=== PATIENT | female | born 1965 | race Caucasian/White ===

== ENCOUNTER 2019-08-20 07:25 | Outpatient (CLI) | payer OTHER, SELFPAY ==
--- NOTE | 2019-08-20 07:15 | USCV_ITS ---
Fabby Yang Age: 54 Gender: F : 1965 Exam Date: 08/20/2019 07:38 Ordering Phys: Paul Iyer MD ([email or web address]) Technologist: Sona Gutierrez Exam Location: [facility] – [place] Indication: F/U BP: 113 / 52 HR: 63 Rhythm: Sinus Technical Quality: Suboptimal MEASUREMENTS (Male / Female) Normal Values 2D ECHO LV Diastolic Diameter PLAX 4.5 cm 4.2 - 5.9 / 3.9 - 5.3 cm LV Systolic Diameter PLAX 2.9 cm LV Chamber Size 3.7 cm IVS Diastolic Thickness 1.0 cm 0.6 - 1.0 / 0.6 - 0.9 cm IVS Systolic Thickness 1.3 cm LVPW Diastolic Thickness 1.5 cm 0.6 - 1.0 / 0.6 - 0.9 cm LVPW Systolic Thickness 1.9 cm RV Chamber Size 3.0 cm LVOT Diameter 2.0 cm LV Ejection Fraction 2D Teich 63.4 % LV Ejection Fraction MOD 2C 63.9 % LV Ejection Fraction 2C AL 64.0 % LA Diameter 3.9 cm LA Width 3.1 cm LA Height 4.6 cm RA Width 3.3 cm RA Height 3.6 cm Aorta at Sinotubular Diameter 2.4 cm M-MODE LV Diastolic Diameter MM 5.1 cm 4.2 - 5.9 / 3.9 - 5.3 cm LV Systolic Diameter MM 3.7 cm LV Ejection Fraction MM Teich 54.0 % IVS Diastolic Thickness MM 0.7 cm 0.6 - 1.0 / 0.6 - 0.9 cm IVS Systolic Thickness MM 1.3 cm LVPW Diastolic Thickness MM 1.0 cm 0.6 - 1.0 / 0.6 - 0.9 cm LVPW Systolic Thickness MM 1.2 cm Aortic Annulus Diameter 2.2 cm LA Ao Ratio MM 1.8 MV E Point Septal Separation 0.4 cm DOPPLER AV Peak Velocity 160.0 cm/s LVOT Peak Velocity 95.0 cm/s AV Area Cont Eq vti 2.5 cm squared AV Area Cont Eq pk 1.9 cm squared MV Area PHT 3.1 cm squared Mitral E to A Ratio 1.1 MV E' Velocity 8.0 cm/s Mitral E to MV E' Ratio 10.9 Mitral E to LV E' Lateral Ratio 10.7 Mitral E to LV E' Septal Ratio 11.4 TR Peak Velocity 213.0 cm/s TR Peak Gradient 18.1 mmHg TV Peak E Velocity 63.0 cm/s Right Atrial Pressure 3.0 mmHg Pulmonary Artery Systolic Pressu 21.1 mmHg PV Peak Velocity 75.0 cm/s RV Acceleration Time 0.2 s RV Ejection Time 0.4 s RV AcT/ET 0.4 FINDINGS Left Ventricle Left ventricular cavity not well visualized. Normal left ventricular size, systolic function and wall thickness, with no regional wall motion abnormalities. Grade I/IV diastolic dysfunction (abnormal relaxation filling pattern), normal to mildly elevated filling pressures. Left ventricular ejection fraction is estimated at 55-60 %. Right Ventricle Normal right ventricular size and systolic function. Normal right ventricular systolic pressure. Right Atrium The right atrium is normal in size. Left Atrium The left atrium is normal in size. Mitral Valve Structurally normal mitral valve. Trace mitral valve regurgitation. Aortic Valve Structurally normal aortic valve without significant sclerosis or stenosis. There is no aortic regurgitation. Tricuspid Valve Structurally normal tricuspid valve. Trace to mild tricuspid valve regurgitation. Pulmonic Valve Pulmonic valve not well visualized. Pericardium Normal pericardium without effusion. Aorta Normal ascending aorta dimension. CONCLUSIONS Left ventricular cavity not well visualized. Normal left ventricular size, systolic function and wall thickness, with no regional wall motion abnormalities. Grade I/IV diastolic dysfunction (abnormal relaxation filling pattern), normal to mildly elevated filling pressures. Left ventricular ejection fraction is estimated at 55-60 %. Structurally normal mitral valve. Trace mitral valve regurgitation. No change from previous study. Dr. Paul Iyer MD (Electronically Signed) Final Date: 20 August 2019 08:11 S
== END 2019-08-20 07:26 | disposition home or self-care (01) ==
PROVIDERS: Family Provider General Practice; PCP Internal Medicine; Visit Provider Internal Medicine Cardiovascular Disease
DX: I25.5 Ischemic cardiomyopathy (principal)
CPT/HCPCS: 93306

== ENCOUNTER 2020-08-12 12:37 | Outpatient (CLI) | payer OTHER, SELFPAY ==
--- NOTE | 2020-08-12 13:20 | USCV_ITS ---
Fabby Yang Age: 55 Gender: F : 1965 Exam Date: 08/12/2020 13:44 Ordering Phys: Claudia Glass MD ([email or web address]) Technologist: Darwin Kyle Exam Location: [facility] – [place] Indication: ISCHEMIC CARDIOMYOPATHY BP: 127 / 83 HR: 64 Rhythm: Sinus Technical Quality: Fair MEASUREMENTS (Male / Female) Normal Values 2D ECHO LV Diastolic Diameter PLAX 4.4 cm 4.2 - 5.9 / 3.9 - 5.3 cm LV Systolic Diameter PLAX 3.1 cm IVS Diastolic Thickness 1.2 cm 0.6 - 1.0 / 0.6 - 0.9 cm IVS Systolic Thickness 1.6 cm LVPW Diastolic Thickness 1.2 cm 0.6 - 1.0 / 0.6 - 0.9 cm LVPW Systolic Thickness 1.5 cm LVOT Diameter 2.0 cm LV Ejection Fraction 2D Teich 57.3 % LV Ejection Fraction MOD 2C 40.0 % LV Ejection Fraction 2C AL 40.2 % LA Diameter 3.2 cm LA Width 3.8 cm LA Height 5.0 cm RA Width 4.1 cm RA Height 4.2 cm Aorta at Sinotubular Diameter 2.5 cm M-MODE LV Diastolic Diameter MM 5.1 cm 4.2 - 5.9 / 3.9 - 5.3 cm LV Systolic Diameter MM 3.7 cm LV Ejection Fraction MM Teich 53.9 % IVS Diastolic Thickness MM 0.8 cm 0.6 - 1.0 / 0.6 - 0.9 cm IVS Systolic Thickness MM 1.4 cm LVPW Diastolic Thickness MM 1.4 cm 0.6 - 1.0 / 0.6 - 0.9 cm LVPW Systolic Thickness MM 1.7 cm Aortic Annulus Diameter 2.7 cm LA Ao Ratio MM 1.1 MV E Point Septal Separation 0.5 cm DOPPLER AV Peak Velocity 149.3 cm/s LVOT Peak Velocity 101.0 cm/s AV Area Cont Eq vti 2.4 cm squared AV Area Cont Eq pk 2.1 cm squared MV Area PHT 4.6 cm squared Mitral E to A Ratio 0.9 MV E' Velocity 42.5 cm/s Mitral E to MV E' Ratio 6.5 Mitral E to LV E' Lateral Ratio 5.7 Mitral E to LV E' Septal Ratio 7.5 TR Peak Velocity 168.6 cm/s TR Peak Gradient 11.4 mmHg TR Mean Velocity 132.5 cm/s TR Mean Gradient 7.8 mmHg TR Velocity Time Integral 44.7 cm Right Atrial Pressure 3.0 mmHg Pulmonary Artery Systolic Pressu 14.4 mmHg PV Peak Velocity 84.0 cm/s FINDINGS Left Ventricle Normal left ventricular size, systolic function and upper normal wall thickness, with no regional wall motion abnormalities. Left ventricular ejection fraction is estimated at 57 %. Normal diastolic function. Right Ventricle Normal right ventricular size and systolic function. Right ventricular systolic pressure 23 mmHg. Right Atrium Normal right atrial size. Left Atrium Normal left atrial size. Mitral Valve Structurally normal mitral valve. No mitral valve stenosis. Trace mitral valve regurgitation. Aortic Valve Structurally normal trileaflet aortic valve. No aortic valve stenosis. No aortic valve regurgitation. Tricuspid Valve Structurally normal tricuspid valve. Trace to mild tricuspid valve regurgitation. Pulmonic Valve Pulmonic valve not well visualized. No pulmonary valve stenosis. No pulmonary valve regurgitation. Pericardium No pericardial effusion. Aorta Normal size aortic root and proximal ascending aorta. CONCLUSIONS 1. Normal left ventricular size, systolic function and wall thickness, with no regional wall motion abnormalities. Left ventricular ejection fraction is estimated at 57 %. Normal diastolic function. 2. Normal right ventricular size and systolic function. 3. Normal pulmonary artery pressure. 4. No significant valvular abnormality. 5. No significant change when compared to echocardiogram dated 08/20/2019/ Claudia Glass MD (Electronically Signed) Final Date: 16 August 2020 17:54 S
== END 2020-08-12 12:38 | disposition home or self-care (01) ==
PROVIDERS: PCP Internal Medicine; Visit Provider Internal Medicine Cardiovascular Disease
DX: I25.5 Ischemic cardiomyopathy (principal)
CPT/HCPCS: 93306

== ENCOUNTER 2020-11-14 16:13 | Emergency (ER) | payer OTHER, SELFPAY ==
[2020-11-14 16:24] VITALS: BP 111/64; PULSE 82; RESP 16; TEMP 36.8; O2SAT 94; BMI 25.9
--- NOTE | 2020-11-14 18:42 | CTR_ITS ---
PROCEDURE INFORMATION: Exam: CT Abdomen And Pelvis With Contrast Exam date and time: 11/14/2020 6:42 PM Age: 55 years old Clinical indication: Abdominal pain; Localized; Lower; Patient HX: C/O vaginal protrusion and pain; Additional info: Uterine prolapse , left flank pain TECHNIQUE: Imaging protocol: Computed tomography of the abdomen and pelvis with contrast. Radiation optimization: All CT scans at this facility use at least one of these dose optimization techniques: automated exposure control; mA and/or kV adjustment per patient size (includes targeted exams where dose is matched to clinical indication); or iterative reconstruction. Contrast material: OMNI 300; Contrast volume: 95 ml; Contrast route: INTRAVENOUS (IV); COMPARISON: No relevant prior studies available. RADIATION DOSE METRICS: Total DLP (mGy-cm): 1765.55 FINDINGS: Liver: Low-attenuation lesion in the posterior right liver; hemangioma suspected. Gallbladder and bile ducts: Normal. No calcified stones. No ductal dilation. Pancreas: Normal. No ductal dilation. Spleen: Normal. No splenomegaly. Adrenal glands: Normal. No mass. Kidneys and ureters: Incidental finding of small simple left renal cortical cyst. Negative for hydronephrosis. Stomach and bowel: Extensive diverticulosis coli. Inflammatory bowel wall thickening involving a short segment of the mid descending colon on the left. Inflammatory fat stranding changes. Enlarged, edematous diverticulum on axial series 2, image 49 correlated with coronal series 602, image 33. Appendix: No evidence of appendicitis. Intraperitoneal space: No free intraperitoneal air. No intraperitoneal fluid collection. Vasculature: Unremarkable. No abdominal aortic aneurysm. Lymph nodes: Unremarkable. No enlarged lymph nodes. Urinary bladder: Unremarkable as visualized. Reproductive: Unremarkable as visualized. Bones/joints: Unremarkable. No acute fracture. Soft tissues: Fat containing left inguinal hernia. CT/CT abdomen pelvis w con* [id number] IMPRESSION: Acute diverticulitis in the mid left descending colon. COMMENTS: Consistent with the [employer]'s Incidental Findings Committee white paper (J Am Dino Radiol 2018): Any incidental renal lesion less than 1 cm or classified as too small to characterize, or any incidental cystic renal lesion characterized as simple-appearing, is likely benign. No follow-up imaging is recommended for these lesions per consensus recommendations based on imaging criteria. Radiation Dose CTDIVOL = (mGy): DLP = 1765.55 (mGy-cm)
--- NOTE | 2020-11-14 18:48 | ED_ITS ---
HPI - Female Genitourinary General: Chief complaint: Urogenital-Female Stated complaint: insides are coming out Time Seen by Provider: 11/14/20 18:27 History of Present Illness: HPI Narrative: Patient states that for about a week she a protrusion from her vaginal opening. States she is evaluated with urinalysis at [facility] and was told she did not have a UTI. Is awaiting for a referral for [facility] has not received that. Patient said she still has a protrusion and is causing some pain in her vaginal area and her left flank area. Having some slight difficulty urinating. Quality of pain: dull and aching Consistency: constant and progressively worsening Vaginal discharge: none Vaginal bleeding: none Urinary symptoms: Difficulty Urinating Exacerbating factors: movement Associated symptoms: Reports no associated symptoms; Deny abdominal pain, headache(s) or nausea Treatment prior to arrival: none Patient : No Review of Systems Const: Denies: fever(s), chills or body aches Eyes: Denies: change in vision or blurry vision ENMT: Denies: throat pain or nasal congestion Card: Denies: chest pain or dyspnea on exertion Resp: Denies: dyspnea, productive cough or non-productive cough GI: Denies: abdominal pain, nausea or vomiting : Reports: flank pain (Left side) and prolapse symptoms Musc: Denies: extremity pain Skin/Breast: Denies: rash Neuro: Denies: headache(s) Psych: Denies: anxiety or depression Edwin/Lymph: Denies: easy bruising PFSH ED PFSH: Medical History HTN (hypertension) Tobacco abuse Family History Mother CAD (coronary artery disease) Father CAD (coronary artery disease) Diabetes Social History Smoking and tobacco status: current every day smoker cigarettes Packs smoked per day: 1 Years cigarettes smoked: 30 Household members: spouse Marital status: Physical Exam Const: COMMON NORMALS: no acute distress, average body habitus and patient oriented x3 HENMT: COMMON NORMALS: normocephalic HEAD & SCALP: normal to inspection and normocephalic FACE & SINUS: normal facial exam Eye: COMMON NORMALS: conjunctivae normal GENERAL EYE: appearance normal, both eyes and all related structures CONJUNCTIVA: Yes conjunctivae normal Neck/C-Spine: COMMON NORMALS: no JVD Chest: COMMONS NORMALS: normal inspection of the chest Resp: COMMON NORMALS: normal respiratory effort and clear to auscultation bilaterally AUSCULTATION: clear to auscultation bilaterally Cardio: COMMON NORMALS: no JVD, regular rate and regular rhythm RATE: regular rate RHYTHM: regular rhythm GI: COMMON NORMALS: Soft to palpation INSPECTION: Yes normal to inspection AUSCULTATION: Yes normoactive bowel sounds PALPATION: Yes Soft to palpation and Yes Tenderness to palpation present (GI) Details: LLQ : COMMON NORMALS: Yes normal appearance of the vagina EXTERNAL FEMALE EXAM: Yes other (I did not see her uterus protruding it does appear to have possible uterine) Extremity: COMMON NORMALS: normal to inspection and full ROM Neuro: COMMON NORMALS: patient oriented x3 Course Vital Signs: Vital signs: Vital Signs Temperature 98.2 F 11/14/20 22:33 Pulse Rate 62 11/14/20 22:33 Respiratory Rate 16 11/14/20 22:33 Blood Pressure 97/41 11/14/20 22:33 Pulse Oximetry 98 11/14/20 22:33 MDM - Female MDM Narrative: Medical decision making narrative: Discussed presentation with Dr. Rowe about patient's presenting signs symptoms labs and radiology report. Lab Data: Labs: Lab Results 11/14/20 11/14/20 11/14/20 Range/Units 19:10 19:10 19:10 WBC 14.8 H (4.0-10.0) 10^3/ uL RBC 4.79 (4.1-5.3) 10^6/u L Hgb 16.0 H (11.5-15.3) g/dL Hct 47.0 (37.0-47.0) % MCV 98.1 (81-99) fL MCH 33.4 (28.0-34.0) pg MCHC 34.0 (30.0-36.0) g/dL RDW 12.2 (12.1-15.1) % Plt Count 301 (130-400) 10^3/c mm MPV 10.6 H (7.4-10.4) fL Neut % (Auto) 52.6 % Lymph % (Auto) 34.8 % Fallon % (Auto) 7.2 % Eos % (Auto) 4.3 % Baso % (Auto) 0.7 % Neut # (Auto) 7.76 H (1.8-7.7) 10^3/u L Lymph # (Auto) 5.1 H (0.8-4.8) 10^3/u L Fallon # (Auto) 1.1 H (0.2-0.9) 10^3/u L Eos # (Auto) 0.6 (0.0-0.8) 10^3/u L Baso # (Auto) 0.1 (0.0-0.1) 10^3/u L Nucleated RBC % (a uto) 0 % Nucleated RBCs # 0.0 /100WBC Sodium 141 (136-145) mmol/L Potassium 4.2 (3.5-5.1) mmol/L Chloride 102 (98-107) mmol/L Carbon Dioxide 26 (22-29) mmol/L Anion Gap 17.2 (5-19) BUN 11 (6-20) mg/dL Creatinine 0.8 (0.5-0.9) mg/dL GFR Calculation 75.0 L (90-130) mL/min Glucose 125 H (65-115) mg/dL Calculated Osmolal ity 293 (285-295) mOsm/k g Calcium 9.1 (8.5-10.5) mg/dL Urine Color Yellow (Yellow) Urine Appearance Clear (CLEAR) Urine pH 5 (5-7) Ur Specific Gravit y 1.015 (1.005-1.030) Urine Protein Neg (Negative) Urine Glucose (UA) Norm (Normal) Urine Ketones Negative (Negative) Urine Blood Trace H (Negative) Urine Nitrate Negative (Negative) Urine Bilirubin Neg (Negative) Urine Urobilinogen Norm (Negative) mg/dL Ur Leukocyte Radha ase Negative (Negative) Urine RBC 0-4 H (0-2) /hpf Urine WBC None (0-5) /hpf Ur Squamous Epith Cells 0-4 H (0-5) /hpf Amorphous Sediment Not Reportable Urine Bacteria Trace (NONE) /hpf Discharge Plan Discharge Patient Disposition: Home Clinical Impression: Acute diverticulitis Condition: Stable Prescriptions: New Cipro 500 mg tablet 500 mg PO BID Qty: 14 RF: 0 Flagyl 500 mg tablet 500 mg PO BID 7 Days Qty: 14 RF: 0 tramadol 50 mg tablet 50 mg PO TID PRN (Reason: pain) Qty: 7 RF: 0 No Action aspirin [Aspir-81] 81 mg tablet,delayed release (DR/EC) 81 mg PO DAILY RF: 0 duloxetine [Cymbalta] 20 mg capsule,delayed release(DR/EC) 20 mg PO DAILY RF: 0 carvedilol 3.125 mg tablet 3.125 mg PO BID Qty: 180 RF: 3 furosemide 40 mg tablet 40 mg PO DAILY Qty: 90 RF: 3 lisinopril 10 mg tablet 10 mg PO DAILY Qty: 90 RF: 3 potassium chloride 20 mEq tablet,ER particles/crystals 20 meq PO DAILY Qty: 90 RF: 3 Discharge Orders: Discharge ED (Routine); Ordered 11/14/20 Ordered By: Carter Hung Referrals: Fidel Benedict DO [Primary Care Provider] - Discharge Diet: As Directed Discharge Activity: Resume usual activity Patient Instructions: Diverticulitis (ED), Diverticulitis Diet (ED) Activity Restrictions/Additional Instructions: Follow-up with medical provider as directed. Take medications as prescribed. Return to the ER or your medical provider if condition worsens. Please read and understand discharge instructions. If any questions ask please. Coding Level of Care Code ED Animal Care Supervisor for Cristal Fwd Exam Comprehensive
[2020-11-14 19:26] LABS: Basophils # 0.1 10^3/uL (0.0-0.1); Basophils % 0.7 %; Eosinophils # 0.6 10^3/uL (0.0-0.8); Eosinophils % 4.3 %; Lymphocytes # 5.1 10^3/uL (0.8-4.8); Lymphocytes % 34.8 %; Mean Corpuscular Hemoglobin 33.4 pg (28.0-34.0); Mean Corpuscular Volume 98.1 fL (81-99); Mean Platelet Volume 10.6 fL (7.4-10.4); Monocytes # 1.1 10^3/uL (0.2-0.9); Monocytes % 7.2 %; Neutrophils # 7.76 10^3/uL (1.8-7.7); Neutrophils % 52.6 %; Nucleated Red Blood Cells % 0 %; Platelet Count 301 10^3/cmm (130-400); Positive M 1; Red Blood Count 4.79 10^6/uL (4.1-5.3); Red Cell Distribution Width 12.2 % (12.1-15.1); White Blood Count 14.8 10^3/uL (4.0-10.0)
[2020-11-14] MEDS: iohexol 300 mg/mL 100 mL Btl IV (19:35)
[2020-11-14 19:47] LABS: Slide Review Slide Review Perform
[2020-11-14 19:58] LABS: Bilirubin Urine Neg (Negative); Glucose Urine UA Norm (Normal); Ketones Urine Negative (Negative); Leukocyte Esterase Urine Negative (Negative); Nitrate Urine Negative (Negative); Protein Urine Neg (Negative); Specific Gravity, Urine 1.015 (1.005-1.030); Urine Appearance Clear (CLEAR); Urine Color Yellow (Yellow); Urobilinogen Urine Norm (Negative); pH Urine 5 (5-7)
[2020-11-14 19:59] LABS: Add Urine Culture? No; Add Urine Microscopic? YES; Bacteria Urine TRACE /hpf; Blood Urine Trace (Negative); RBC Urine 0-4 /hpf (0-2); Squamous Epithelial Cell Urine 0-4 /hpf (0-5)
[2020-11-14 20:00] LABS: Blood Urea Nitrogen 11 mg/dL (6-20); Calcium 9.1 mg/dL (8.5-10.5); Carbon Dioxide 26 mmol/L (22-29); Chloride 102 mmol/L (98-107); Glucose 125 mg/dL (65-115); Osmolality Calculated 293 mOsm/kg (285-295); Sodium 141 mmol/L (136-145)
[2020-11-14] MEDS: HYDROcodone-acetaminophen 5-325 mg Tablet 1 TAB PO (20:05)
[2020-11-14 20:07] VITALS: BP 106/55; PULSE 76; RESP 16; O2SAT 97
[2020-11-14 20:10] LABS: Anion Gap 17.2 (5-19); Potassium 4.2 mmol/L (3.5-5.1)
[2020-11-14] MEDS: ciprofloxacin 200 MG/100 ML PREMIX 100 MG IV (21:27)
[2020-11-14] MEDS: metroNIDAZOLE IV 250 MG in empty flexible container 1 EACH 50 MG IV (21:27)
[2020-11-14 22:00] VITALS: BP 102/60; PULSE 76; RESP 16; TEMP 36.8; O2SAT 97
[2020-11-14 22:33] VITALS: BP 97/41; PULSE 62; RESP 16; TEMP 36.8; O2SAT 98
== END 2020-11-14 22:41 | disposition home or self-care (01) ==
PROVIDERS: Emergency Provider Nurse Practitioner Family; PCP Internal Medicine
DX: K57.92 Diverticulitis of intestine, part unspecified, without perforation or abscess without bleeding (principal); Z79.82 Long term (current) use of aspirin; I10 Essential (primary) hypertension; F17.210 Nicotine dependence, cigarettes, uncomplicated
CPT/HCPCS: 74177; 80048; 81001; 85025; 96365; 96367; 99284; J0744; Q9967; S0030

== ENCOUNTER → 2020-12-03 15:42 | Outpatient (BNVA) | payer OTHER, SELFPAY | PROVIDERS: PCP Internal Medicine; Referring Provider Nurse Practitioner Family; Visit Provider Obstetrics & Gynecology | DX: Z12.4 Encounter for screening for malignant neoplasm of cervix (principal); N81.4 Uterovaginal prolapse, unspecified; R10.2 Pelvic and perineal pain; R32 Unspecified urinary incontinence | CPT/HCPCS: 88175 ==

== ENCOUNTER → 2020-12-16 15:52 | Outpatient (BNVA) | payer OTHER, SELFPAY | PROVIDERS: PCP Internal Medicine; Visit Provider Obstetrics & Gynecology | DX: N81.4 Uterovaginal prolapse, unspecified (principal); N88.8 Other specified noninflammatory disorders of cervix uteri | CPT/HCPCS: 76830 ==

== ENCOUNTER → 2021-01-07 08:36 | Outpatient (BNVA) | payer OTHER, SELFPAY | PROVIDERS: PCP Internal Medicine; Visit Provider Obstetrics & Gynecology | DX: R10.2 Pelvic and perineal pain (principal); N81.4 Uterovaginal prolapse, unspecified; Z20.822 Contact with and (suspected) exposure to COVID-19 | CPT/HCPCS: 87635 ==

== ENCOUNTER 2021-01-11 14:20 | Observation (INO) | payer OTHER, SELFPAY ==
[2021-01-07 10:20] VITALS: BMI 27.6
[2021-01-07 11:04] LABS: Basophils # 0.1 10^3/uL (0.0-0.1); Basophils % 0.8 %; Eosinophils # 0.5 10^3/uL (0.0-0.8); Hematocrit 49.4 % (37.0-47.0); Hemoglobin 16.6 g/dL (11.5-15.3); Lymphocytes # 4.5 10^3/uL (0.8-4.8); Lymphocytes % 33.5 %; Mean Corpuscular HGB Conc 33.6 g/dL (30.0-36.0); Mean Corpuscular Volume 101.2 fl (81-99); Mean Platelet Volume 10.3 fL (7.4-10.4); Monocytes # 0.7 10^3/uL (0.2-0.9); Monocytes % 5.5 %; Neutrophils # 7.42 10^3/uL (1.8-7.7); Neutrophils % 55.9 %; Nucleated Red Blood Cells % 0 %; Platelet Count 293 10^3/cmm (130-400); Red Blood Count 4.88 10^6/uL (4.1-5.3); Red Cell Distribution Width 12.6 % (12.1-15.1); White Blood Count 13.3 10^3/uL (4.0-10.0)
[2021-01-07 11:22] LABS: Alanine Aminotransferase 20 U/L (0-33); Albumin Level 4.3 g/dL (3.5-5.2); Alkaline Phosphatase 99 IU/L (35-105); Anion Gap 11.7 (5-19); Aspartate Amino Transferase 19 U/L (0-32); Blood Urea Nitrogen 13 mg/dL (6-20); Calcium 9.2 mg/dL (8.5-10.5); Carbon Dioxide 32 mmol/L (22-29); Chloride 102 mmol/L (98-107); Globulin 2.7 g/dL (1.3-4.6); Glomerular Filtration Rate 87.2 mL/min (90-130); Glucose 108 mg/dL (65-115); Osmolality Calculated 295 mOsm/kg (285-295); Potassium 3.7 mmol/L (3.5-5.1); Sodium 142 mmol/L (136-145); Total Bilirubin 0.2 mg/dL (0.15-1.2)
[2021-01-07 11:48] LABS: Slide Review Slide Review Perform
--- NOTE | 2021-01-07 13:11 | P.ANESASSM_ITS ---
Pre-Anesthetic Assessment Pre-Anesthetic Assessment: Height/Weight: Height 1.7 m Weight 79.832 kg Preop Diagnosis: uterine prolapse, urinary incontinence, pelvic pain Proposed Procedure: Operation Date: 01/11/21 10:25 Proposed Procedures p Total Vaginal Hysterectomy 21705 [id number] N81.4 R10.2(Not Applicable) - Tessa Ye MD s Salpingo-Oophorectomy (Vaginal)(Not Applicable) - Tessa Ye MD s Sling(Not Applicable) - Tessa Ye MD s Anterior Repair(Not Applicable) - Tessa Ye MD s Posterior Repair(Not Applicable) - Tessa Ye MD Was Beta Ivonne taken within 24 hours: Yes Was Clonidine taken within 24 hours: N/A Social: Social History: No alcohol and No tobacco Exam: Pre-Anes Outpt Exam: alert, oriented x 3, clear to auscultation bilaterally and regular rate & rhythm Airway: Submandibular: WNL Cervical ROM: WNL MP: 2 Pulmonary: Pulmonary: None reported CV/HEM: CV/HEM: CHF (Viral Myocarditis ) : Comments: Uterine Prolapse Hepatic: Hepatic: None reported GI: GI: GERD Metabolic: Metabolic: None reported Musc/skel: Musc/skel: None reported Neuropsych: Neuropsych: None reported Anesthetic Plan: ASA status: 3 Anesthesia: General PFS Anesthesia PFSH: Medical History HTN (hypertension) Tobacco abuse Family History Mother CAD (coronary artery disease) Father CAD (coronary artery disease) Diabetes Social History Smoking and tobacco status: current every day smoker cigarettes Packs smoked per day: 1 Years cigarettes smoked: 30 Household members: spouse Marital status: Female Reproductive History: Date of last menstrual period: 06/08/20 Data Anesthesia CBC & Chem 7: 01/07/21 10:48 01/07/21 10:48 Other Labs: Laboratory Results - last 48 hr 01/07/21 01/07/21 10:48 10:48 WBC 13.3 H RBC 4.88 Hgb 16.6 H Hct 49.4 H MCV 101.2 H MCH 34.0 MCHC 33.6 RDW 12.6 Plt Count 293 MPV 10.3 Neut % (Auto) 55.9 Lymph % (Auto) 33.5 [place]imer % (Auto) 5.5 Eos % (Auto) 4.0 Baso % (Auto) 0.8 Neut # (Auto) 7.42 Lymph # (Auto) 4.5 [place]imer # (Auto) 0.7 Eos # (Auto) 0.5 Baso # (Auto) 0.1 Nucleated RBC % (auto) 0 Nucleated RBCs # 0.0 Sodium 142 Potassium 3.7 Chloride 102 Carbon Dioxide 32 H Anion Gap 11.7 BUN 13 Creatinine 0.7 GFR Calculation 87.2 L Glucose 108 Calculated Osmolality 295 Calcium 9.2 Total Bilirubin 0.2 AST 19 ALT 20 Alkaline Phosphatase 99 Total Protein 7.0 Albumin 4.3 Globulin 2.7 Cardiac Studies: No Data to Display
[2021-01-11] VITALS (13 sets, daily range): BP systolic 99–124; BP diastolic 52–77; PULSE 58–76; RESP 14–18; TEMP 36.2–36.8; O2SAT 90–100; BMI 27.6
[2021-01-11] MEDS: sodium chloride 0.9% 1,000 ML 30 ML IV (09:40)
[2021-01-11] MEDS: phenazopyridine 100 mg Tablet 200 MG PO (09:43)
[2021-01-11] MEDS: CELEcoxib 200 mg Capsule 400 MG PO (09:44)
[2021-01-11] MEDS: gabapentin 300 mg Capsule PO (09:44)
[2021-01-11] MEDS: acetaminophen 1,000 MG/100 ML PIGGYBACK 400 MG IV (09:45)
[2021-01-11] MEDS: ketorolac 30 mg/mL INJ IVP ×3 (09:46→20:58)
--- NOTE | 2021-01-11 10:39 | W.PM.OPSUD ---
Surgery/Procedure H&P Update DATE OF PROCEDURE: January 11, 2021 DATE H&P PERFORMED: 01/07/21 H&P UPDATE INFORMATION: I have reviewed H&P completed within last 30 days, I have examined patient prior to procedure and No changes to prior documentation PREOP DIAGNOSIS: uterine prolapse, urinary incontinence, pelvic pain PLANNED PROCEDURE: Operation Date: 01/11/21 10:25 Proposed Procedures p Laparoscopic Assist Vaginal Hysterectomy(Not Applicable) - Tessa Ye MD s Salpingo-Oophorectomy (Vaginal)(Not Applicable) - Tessa Ye MD s Sling(Not Applicable) - Tessa Ye MD s Anterior Repair(Not Applicable) - Tessa Ye MD s Posterior Repair(Not Applicable) - Tessa Ye MD
[2021-01-11] MEDS: midazolam 1 mg/mL INJ 2 mL 2 MG IVP (10:48)
--- NOTE | 2021-01-11 11:51 | P.ANESUD_ITS ---
Pre-Anesthetic Update Pre-Anesthetic Assessment: Date of Surgery/Procedure: 01/11/21 Preop Tamara gnosis: uterine prolapse, urinary incontinence, pelvic pain Proposed Procedure: Operation Date: 01/11/21 10:25 Proposed Procedures p Laparoscopic Assist Vaginal Hysterectomy(Not Applicable) - Tessa Ye MD s Salpingo-Oophorectomy (Vaginal)(Not Applicable) - Tessa Ye MD s Sling(Not Applicable) - Tessa Ye MD s Anterior Repair(Not Applicable) - Tessa Ye MD s Posterior Repair(Not Applicable) - Tessa Ye MD Any changes to Pre-Anesthetic Assessment?: No Last Intake: Intake Last Liquid Date 01/10/21 Last Liquid Time 23:00 Last Solid Date 01/10/21 Last Solid Time 23:00 Labs Last 48hrs: Laboratory Results - last 48 hr 01/11/21 09:31 Blood Type O Positive Rho(D) Type Positive Antibody Screen Negative Vitals: Temperature 97.1 F L 01/11/21 09:00 Temperature Source Temporal Artery S can 01/11/21 09:00 Pulse Rate 76 01/11/21 09:00 Pulse Rhythm 01/11/21 10:09 Pulse Strength 3+ Normal 01/11/21 10:09 Respiratory Rate 18 01/11/21 09:00 Blood Pressure 113/74 01/11/21 09:00 Blood Pressure Rafaela n 87 01/11/21 09:00 Pulse Oximetry 95 01/11/21 09:00 Oxygen Delivery Me thod 01/11/21 10:09 Exam: Pre-Anes Outpt Exam: alert, oriented x 3, clear to auscultation bilaterally and regular rate & rhythm Cardiac Studies: No Data to Display
[2021-01-11] MEDS: vasopressin 20 unit/mL INJ 4 UNIT INJECTION (12:37)
--- NOTE | 2021-01-11 14:21 | P.OP_ITS ---
Operative Report Date of procedure: January 11, 2021 Pre-op Diagnosis: uterine prolapse, urinary incontinence, pelvic pain Post-op diagnosis: same Procedure Done: laparoscopic assisted vaginal hysterectomy, bilateral salpingectomy. Right oophorectomy. Specimens removed/disposition: uterus, bilateral fallopian tubes, right ovary to pathology Surgeon: Tessa Ye Anesthesia: General Estimated blood loss (mL): 200 IV fluids (mL): 1,700 Urine output (mL): 500 Complications: none Findings: adhesions of the omentum to the abdominal wall. Adhesions of the left ovary to the sigmoid colon. Solid adhesions on the left. Normal appearing uterus, tubes and ovaries. Condition: stable Disposition: floor Brief History: The patient presented with complaints of uterine prolapse, pelvic pain and urinary incontinence. We discussed options and she elected to have surgery. Procedure: The patient was taken to the operating room where general anesthesia was administered and found to be adequate. She was prepped and draped in the normal sterile fashion in the dorsal lithotomy position in [facility]. A Jovel catheter was placed. A weighted speculum was placed into the vagina and the anterior lip of the cervix was grasped with a single tooth tenaculum. The Zumi uterine manipulator was placed. The weighted speculum was removed. The gloves were changed and attention was turned to the abdomen. A 5 mm infraumbilical incision was made. Using a 5 mm port with the camera, the port was placed into the abdomen. The abdomen was insufflated. Two low, lateral 5 mm ports were placed on the left and right under direct visualization from the camera. There were adhesions of the omentum to the abdominal wall. There were also many adhesions in the left adnexae. The ovary was adhesed to the sigmoid colon and unable to be removed. The right tube was grasped and elevated. Using the laparoscopic cautery, the infundibuolopelvic ligament was cauterized and cut. The left was performed in the same way, however the ovary was adhesed to the sigmoid colon and I was unable to dissect between them. The ovary was left, however, there was no blood supply left to it. The uteroovarian ligaments as well as the round ligaments were ligated. Attention was then turned to the vaginal portion of the procedure. The weighted speculum was placed into the vagina. The zumi manipulator was removed. The single tooth tenaculum was removed and replaced with the diego's tenaculum. 10 mL of dilute Pitressin was injected at the vesicovaginal junction. A circumferential incision was made at the vesicovaginal junction and the vaginal mucosa reflected cephalad. The posterior peritoneum was entered sharply with the Metzenbaum scissors and the long weighted speculum replaced. Using the Trini clamps the uterosacral ligaments were clamped cut and suture- ligated. The anterior peritoneum was entered sharply with the metzenbaum scissors. Then sequentially the uterine arteries and cardinal ligaments were clamped cut and suture-ligated. A single-tooth tenaculum was used to deliver the uterus. The remaining segement of the utero-ovarian ligaments were clamped cut and suture-ligated bilaterally and the specimen was removed. There was good hemostasis with only mild bleeding from the cuff. The peritoneum was closed with a pursestring using 2-0 Vicryl. The vaginal cuff was closed with 0 Vicryl in a running locked pattern incorporating the uterosacral ligaments into the lateral aspects of the vaginal cuff. The Jovel catheter was removed and the cystoscope advanced into the bladder. The patient was given pyridium and bilateral spill was noted. There were no injuries or deficits noted in the bladder. The cystoscope was removed and the Jovel was replaced. A weighted speculum was placed into the vagina and an Allis clamp was placed approximately 2 cm below the urethra and another placed approximately 3 cm distal from that. An incision was made between the 2. The tissue was sharply and bluntly dissected along the pubic ramus bilaterally. The sling was placed on the left first by going through the incision and attaching the sling to the obturator foramen membrane . The right side was performed in a similar fashion, placing the applicator through the incision and attaching to the obturator foramen membrane. The Jovel catheter was removed and the cystoscope advanced into the bladder. There was no mesh noted to be in the bladder. The sling was tightened until there was no leakage with valsalva. The tag of suture was trimmed. The incision was repaired with 2-0 Vicryl in a running locked fashion. The jovel catheter was replaced. Attention was then turned to the perineorrhphy. Allis clamps were placed on the posterior fourchette. A 3 cm wedge of the fourchette was removed. This was repaired in the usual fashion with O-vicryl. Vaginal packing was placed. The patient tolerated the procedure well. Sponge, lap and needle counts were correct times three. She was taken to the recovery room in stable condition.
[2021-01-11] MEDS: ondansetron 2 mg/ML SDV 2 mL 4 MG IVP (14:51)
--- NOTE | 2021-01-11 14:54 | ANE.PACU2 ---
Inpatient post-anesthesia follow up: Airway intact: Yes Vital signs: Temperature 97.2 F Pulse Rate 62 Respiratory Rate 16 Blood Pressure 108/63 Pulse Oximetry 97 Oxygen Delivery Me thod Simple Mask Oxygen Flow Rate 8 Fraction of Inspir ed Oxygen Hydration adequate: Yes Nausea and vomiting: No Pain level: 2 Mental status: Baseline
[2021-01-11] MEDS: dextrose 5%-lactated ringers 1,000 ML 125 ML IV ×2 (15:47→23:25)
[2021-01-11] MEDS: carvedilol 3.125 mg Tablet PO (17:10)
[2021-01-11] MEDS: docusate sodium 100 mg Capsule PO (17:10)
[2021-01-11] MEDS: HYDROcodone-acetaminophen 5-325 mg Tablet PO (17:11)
--- NOTE | 2021-01-11 17:19 | PC.NURSE ---
Admit Note Patient admitted to Med/Surg from surgery via stretcher. Covering service notified. Patient presents with post hysterectomy. Orders reviewed & will continue to monitor. Patient and/or provider relations representative oriented to environment, equipment, and informed of the following as found in the admission booklet: patient rights & responsibilities, visitor policy, hand and respiratory hygiene practice. Other education includes: pain management, S/S of infection, and oxygen use. Patient and/or provider relations representative states verbal understanding.
[2021-01-11] MEDS: HYDROmorphone 1 mg/mL INJ 1 mL 1.5 MG IVP ×2 (18:29→22:19)
--- NOTE | 2021-01-11 21:00 | PC.NURSE ---
Pt up to chair and bathroom then back to bed. Tolerated well
[2021-01-12] VITALS: BP 98/54; PULSE 74; RESP 17; TEMP 36.7; O2SAT 92
[2021-01-12] MEDS: ketorolac 30 mg/mL INJ IVP ×2 (02:56→09:16)
[2021-01-12] MEDS: HYDROcodone-acetaminophen 5-325 mg Tablet PO ×2 (03:18→14:12)
[2021-01-12 04:00] VITALS: BP 113/73; PULSE 60; RESP 20; TEMP 36.6; O2SAT 96
[2021-01-12] MEDS: pantoprazole DR 40 mg Tablet PO (05:19)
[2021-01-12] MEDS: dextrose 5%-lactated ringers 1,000 ML 125 ML IV (06:22)
[2021-01-12 06:32] LABS: Glucose Point of Care 145 mg/dL (70-110)
[2021-01-12 06:40] LABS: Hematocrit 41.9 % (37.0-47.0); Hemoglobin 13.5 g/dL (11.5-15.3); Mean Corpuscular HGB Conc 32.2 g/dL (30.0-36.0); Mean Corpuscular Hemoglobin 33.1 pg (28.0-34.0); Mean Corpuscular Volume 102.7 fl (81-99); Mean Platelet Volume 10.4 fL (7.4-10.4); Platelet Count 268 10^3/cmm (130-400); Red Blood Count 4.08 10^6/uL (4.1-5.3); Red Cell Distribution Width 12.5 % (12.1-15.1); White Blood Count 18.4 10^3/uL (4.0-10.0)
[2021-01-12] MEDS: acetaminophen 325 mg Tablet 650 MG PO (07:24)
[2021-01-12] MEDS: docusate sodium 100 mg Capsule PO (08:13)
[2021-01-12] MEDS: lisinopril 10 mg Tablet PO (08:13)
[2021-01-12] MEDS: FUROsemide 40 mg Tablet PO (08:13)
[2021-01-12] MEDS: carvedilol 3.125 mg Tablet PO (08:13)
[2021-01-12 08:14] VITALS: BP 99/65; PULSE 54; RESP 18; TEMP 36.1; O2SAT 97
[2021-01-12 08:24] VITALS: BP 100/68; PULSE 52; RESP 16; TEMP 36.6; O2SAT 96
--- NOTE | 2021-01-12 10:09 | PC.CHAP ---
Pastoral Care Encounter/Spiritual Assessment Type of Contact [] Declined supervisor die casting visit [] Patient/Family/Request visit [] Outpatient visit [] Follow-up visit [] Physician referral [] Code/Alert [x] Routine visit [] Staff referral [] Actively dying [] Patient sleeping [] Family support [] [] Out of room [] Palliative care [] [] Receiving care in room [] Pre-surgical visit [] Trauma [] Long length of stay [] ICU visit [] Other: Relational/Emotional Strength [x] Patient feels connected with others/family/visitors/staff [] Distress [] Loneliness/isolation [] Abandonment Spirituality of Patient [x] Person of Amirah [x] Attends Anabaptist of their Amirah [x] Believes in Prayer [] Reads Bible or Yazidism materials [] There are Spiritual issues to be addressed Bead Maker Interventions [x] Prayer [x] Active listening [x] Non-anxious presence [x] Spiritual/emotional support [] Crisis/trauma care [] Spiritual counseling [] Bereavement support [] Provided bereavement packet [] Provided Bible/devotional materials [] Provided toy/stuffed animal, coloring book to patient or family member [] Provided Communion [] Anointing/[place] [] Salvation [] Completed spiritual assessment [] Other: Impact on Illness or Injury [] Angry [] Fearful [] Anxious [] Often cries [] Exhaustion [] Unable to work [] Unable to attend jain [] Unable to walk/stand [] Unable to read [] Unable to drive [] Unable to eat/drink [] Unable to sleep [] Unable to be with family [] Patient intubated [] Other: Summary Time spent with patient 15 min
--- NOTE | 2021-01-12 10:42 | PM.DCS ---
Discharge Providers Date of Admission: 01/11/21 14:20 Date of Discharge: January 12, 2021 Attending Provider at Admission: Tessa Ye MD Attending Provider at Discharge: Tessa Ye MD Primary Care Provider: Fidel Benedict DO Diagnoses at Discharge Discharge Diagnosis (1) Postoperative state: Status: Acute Reason for Visit Reason for Visit: uterine prolapse Hospital Course Hospital Course The patient was admitted for surgery. She did well postoperatively and was ready for discharge on day #1. The patient had a voiding trial and had urinary retention. She was discharged with a catheter and leg bag. Physical Exam Narrative: EXAM NARRATIVE: The patient is doing well this morning. She is tolerating a regular diet. She is ambulating. She is starting her voiding trial. Pain is well controlled. Packing is removed. Const: COMMON NORMALS: no acute distress, average body habitus, patient oriented x3, no limitations, healthy appearing, alert and well nourished GENERAL APPEARANCE: cooperative, comfortable, well kempt and well developed ORIENTATION/CONSCIOUSNESS: Yes awake, Yes oriented to person, Yes oriented to place and Yes oriented to time Resp: COMMON NORMALS: normal respiratory effort EFFORT & INSPECTION: Yes able to speak in complete sentences GI: COMMON NORMALS: Soft to palpation and non-tender PALPATION: Yes Soft to palpation : COMMON NORMALS: Yes normal external appearance Extremity: COMMON NORMALS: no clubbing, cyanosis or edema and no calf tenderness Neuro: COMMON NORMALS: patient oriented x3 SENSORIUM/ORIENTATION: Yes alert, Yes oriented to person, Yes oriented to place and Yes oriented to time Psych: APPEARANCE: Yes well kempt Skin: WOUNDS: Yes surgical site (clean/dry/intact) Urinary Catheter Management^: Curry: Cath Placed During This Visit: yes Reason for Continuing Indwelling Catheter: Required Immobilization for Trauma or Surgery or Anesthesia Urinary Catheter Date of Insertion: 01/11/21 Urinary Catheter Time of Insertion: 11:50 Discharge Data Data Completed and Pending: Pending at discharge Category Date Time Status ES surgery / GI i mages Routine Exams 01/11/21 10:43 Taken Pathology: Surgic al [PTH] Routine Pth 01/11/21 14:30 Received Labs from last 24 hours 01/12/21 01/12/21 06:27 06:21 WBC 18.4 H RBC 4.08 L Hgb 13.5 Hct 41.9 MCV 102.7 H MCH 33.1 MCHC 32.2 RDW 12.5 Plt Count 268 MPV 10.4 POC Glucose 145 H Vitals: Last Vital Signs Temp 97.8 F 01/12/21 08:24 Pulse 52 L 01/12/21 08:24 Resp 16 01/12/21 08:24 BP 100/68 01/12/21 08:24 Pulse Ox 96 01/12/21 08:24 Discharge Plan Discharge Patient Disposition: Home Condition: Stable Prescriptions: New hydrocodone-acetaminophen 5-325 mg Tablet 1 tab PO Q4H PRN (Reason: Moderate To Severe Pain) Qty: 30 RF: 0 Continued omeprazole 20 mg capsule,delayed release(DR/EC) 20 mg PO DAILY RF: 0 polyethylene glycol 3350 [Miralax] 17 gram/dose powder 17 g PO DAILY RF: 0 sennosides-prunes 12-50 mg capsule 1 cap PO DAILY RF: 0 acetaminophen [Tylenol Extra Strength] 500 mg tablet 500 mg PO DAILY RF: 0 ibuprofen [Advil] 200 mg tablet 200 mg PO Q4H PRN (Reason: pain/fever) RF: 0 multivitamin Tablet 1 tab PO DAILY RF: 0 cetirizine-pseudoephedrine [Zyrtec-D] 5-120 mg tablet extended release 12 hr 1 tab PO DAILY RF: 0 carvedilol 3.125 mg tablet 3.125 mg PO BID Qty: 180 RF: 3 potassium chloride 20 mEq tablet,ER particles/crystals 40 meq PO DAILY RF: 0 furosemide 40 mg tablet 40 mg PO DAILY RF: 0 aspirin 81 mg Tablet,Delayed Release (Dr/Ec) 81 mg PO DAILY RF: 0 lisinopril 10 mg tablet 10 mg PO DAILY RF: 0 Discharge Orders: Discharge Order (Routine); Ordered 01/12/21 Ordered By: Tessa Ye Referrals: Tessa Ye MD [Physician] - 01/17/21 10:30 am (SECOND APPOINTMENT WITH DR YE ON FEBRUARY 21 AT 11:00) Fidel Benedict DO [Primary Care Provider] - 01/20/21 9:15 am Patient Instructions: Hydrocodone/Acetaminophen (By mouth), Curry Catheter Care, Laparoscopically Assisted Vaginal Hysterectomy (DC), Urinary Leg Bag (GEN), Opioid Safety Discharge Attestations Time Spent in Discharge Care*: less than 30 min Quality Metrics Clinical Quality Measures During this hospital stay, did patient experience: None Coding Level of Care Code Acute Chg FW DC note Exam Detailed Diagnoses Postoperative state Z98.890
[2021-01-12 11:49] VITALS: BP 97/63; PULSE 57; RESP 16; TEMP 36.6; O2SAT 98
--- NOTE | 2021-01-12 15:30 | PC.NURSE ---
This RN observed student nurse provide care to this patient today.
--- NOTE | 2021-01-12 15:52 | PC.NURSE ---
Discharge Note Patient discharged to home via private vehicle accompanied by . Discharge instructions reviewed with patient and/or customer solutions representative. Mobile pharmacy medications and/or prescriptions provided. Belongings/home medications returned. Teaching done with patient and on how to change the bag on jovel catheter, how to empty the jovel, how to care for it, and how to perform cleaning. Encouraged pt and to call the Med/Surg floor if any questions come up.
--- NOTE | 2021-01-12 16:02 | PC.NURSE ---
Patient cath was removed at 1100, patient voided and post void bladder scan showed 278. Patient was going to be discharged and stated she felt like she could not urinate. Placed call to Dr. Ye states to have pt wait and after voiding bladder scan. Pt voided, bladder scanned had 838 ml. Patient wanted to walk and try to void again. After walking patient voided 100 ml, and was bladder scanned again, had 924 ml of urine. Placed another call to Dr. Banda orders given to place jovel cath that pt will go home with. Jovel placed, got return of 800, teaching done on the jovel and cath care. Pt and states verbal understanding to all teaching.
[2021-01-12 16:09] VITALS: BP 97/63; PULSE 57; RESP 16; TEMP 36.6; O2SAT 98
--- NOTE | 2021-01-13 14:52 | PC.SOCIAL ---
discharge follow up call made. patient reports she is sore but is taking hydrocodone that seems to help with the pain. patient had questions about jovel cath care, policy writer typist went over cath care and also teaching for mehran care post operatively. policy writer typist spoke with both pt and . both seemed to have a better understanding of mehran care and jovel care after the conversation. advised they could get a mehran bottle to help clean the patient and for comfort. patient is aware of follow up appointment date and times.
--- NOTE | 2021-01-14 16:34 | PC.RESP ---
SMOKING CESSATION INFORMATION SENT TO PATIENT.
== END 2021-01-12 16:10 | disposition home or self-care (01) ==
LOC: MEDSURG 14:20
PROVIDERS: Admitting Provider Obstetrics & Gynecology; PCP Internal Medicine; Visit Provider Obstetrics & Gynecology
PROC: 0UT9FZZ Resection of Uterus, Via Natural or Artificial Opening With Percutaneous Endoscopic Assistance (ICD-10-PCS; CPT 58552; principal; 2021-01-11 10:15)
PROC: (CPT 58720; 2021-01-11 10:15)
PROC: (CPT 57288; 2021-01-11 10:15)
PROC: 0TJB8ZZ Inspection of Bladder, Via Natural or Artificial Opening Endoscopic (ICD-10-PCS; CPT 52000; 2021-01-11 10:15)
DX: N81.4 Uterovaginal prolapse, unspecified (principal); R33.9 Retention of urine, unspecified; K21.9 Gastro-esophageal reflux disease without esophagitis; I11.0 Hypertensive heart disease with heart failure; I50.9 Heart failure, unspecified; F17.210 Nicotine dependence, cigarettes, uncomplicated; Z82.49 Family history of ischemic heart disease and other diseases of the circulatory system
CPT/HCPCS: 58552; 36415; 36416; 51702; 51798; 80053; 82962; 85025; 85027; 86850; 86900; 87086; 88305; 96365; 96374; 96375; C1713; G0378; J0330; J0690; J1100; J1170; J1885; J2250; J2405; J2704; J2710; J3010; J3490; J7030

== ENCOUNTER → 2021-04-18 11:36 | Outpatient (BNVA) | payer OTHER, SELFPAY | PROVIDERS: PCP Internal Medicine; Visit Provider Obstetrics & Gynecology | DX: N89.8 Other specified noninflammatory disorders of vagina (principal) | CPT/HCPCS: 87481; 87512; 87798; 87799 ==

== ENCOUNTER 2022-03-29 13:46 | Outpatient (CLI) | payer OTHER, SELFPAY ==
--- NOTE | 2022-03-29 14:00 | MM_ITS ---
WS: [id number] BILATERAL 3D TOMOSYNTHESIS DIGITAL SCREENING MAMMOGRAPHY WITH CAD CLINICAL INFORMATION: Z12.39 - Encounter for other screening for malignant neop... HISTORY: Screening mammogram. No current complaints. COMPARISON: None. TECHNIQUE: Bilateral CC and MLO views. FINDINGS: Scattered fibroglandular densities bilaterally. No suspicious focal mass, asymmetry, calcifications, or architectural distortion. No evidence of malignancy. MM/[place] [id number] IMPRESSION: BI-RADS: 1-Negative FOLLOW UP: 1 Year Follow-up Recommend return to annual screening mammography.
== END 2022-03-29 13:47 | disposition home or self-care (01) ==
LOC: RAD 13:47
PROVIDERS: PCP Internal Medicine; Visit Provider Internal Medicine
DX: Z12.31 Encounter for screening mammogram for malignant neoplasm of breast (principal)
CPT/HCPCS: 77063; 77067

== ENCOUNTER 2023-02-17 12:27 | Emergency (ER) | payer OTHER, SELFPAY ==
[2023-02-17 12:39] VITALS: BP 143/83; PULSE 79; RESP 16; TEMP 37.1; O2SAT 95; BMI 28.1
--- NOTE | 2023-02-17 13:09 | XRR_ITS ---
PROCEDURE INFORMATION: Exam: XR Abdomen Exam date and time: 02/17/2023 1:29 PM Age: 58 years old Clinical indication: Abdominal pain; Localized; Left lower quadrant (llq); Prior surgery; Surgery date: 6+ months; Surgery type: Bladder sling 05/2022; Hysterectomy 2020; Patient HX: Llq pain; Constipation; HX hysterectomy x 2yr ago-bladder sling TECHNIQUE: Imaging protocol: Radiologic exam of the abdomen. Views: Frontal supine view of the abdomen. 1 View. COMPARISON: CT abdomen pelvis w con* [id number] 11/14/2020 7:32 PM FINDINGS: Gastrointestinal tract: There is abundant colonic stool/constipation without impaction. No bowel dilation. No ileus or obstruction. No calculi. Bones/joints: Unremarkable. XR/XR KUB [id number] IMPRESSION: Nonspecific bowel gas pattern. There is constipation.
[2023-02-17 13:22] VITALS: BP 113/63; PULSE 73; RESP 16; O2SAT 96
--- NOTE | 2023-02-17 14:20 | W.ED.ABDPA2 ---
HPI - Abdominal Pain General: Chief Complaint: Abdominal Pain Stated Complaint: lower abd pain Time Seen by Provider: 02/17/23 12:33 History of Present Illness: Fabby Yang is a 58-year-old female that presents to the emergency department with left lower quadrant abdominal discomfort. Patient states that she was moving a heavy cooler at work yesterday when she felt a pulling sensation in her left lower quadrant. Since that time, patient has developed abdominal discomfort. It seemed to subside this morning but when she returned to work it returned. Patient states that she has a history of IBS and has not taken her usual stool softener/laxative. She had a small hard bowel movement this morning-not her usual. Patient states that she had bladder surgery In May. Patient denies fever, chills, chest pain, shortness of breath. Denies any nausea vomiting or diarrhea. Does have issues with constipation Also has a history of diverticulosis and diverticulitis. Associated Symptoms: Reports constipation; Denies bloating, chills, GI cramping, diarrhea, dysuria, fever(s), hematochezia, hematuria, nausea and vomiting Review of Systems General: Reports: 10 or more systems reviewed and unremarkable except in HPI and below Const: Denies: fever(s), chills, change in appetite, change in weight, fatigue or malaise Eyes: Denies: change in vision, eye discomfort, eye discharge or eye redness ENMT: Denies: throat pain, enlarged tonsils, odynophagia, hoarseness, ear or mastoid pain, ear discharge, change in hearing, tinnitus, nasal discharge, nasal congestion, post nasal drip or sinus pain Card: Denies: chest pain, palpitations, irregular heart rhythm, edema, dyspnea on exertion, orthopnea or leg pain with exertion Resp: Denies: dyspnea, productive cough, non-productive cough, wheezing, stridor or chest congestion GI: Reports: abdominal pain and constipation; Denies: nausea, vomiting, dysphagia, diarrhea, bloating, GI cramping or hematochezia : Denies: flank pain, difficulty voiding, dysuria, urinary frequency, urinary urgency, urinary hesitancy, oliguria or hematuria Musc: Denies: neck pain, back pain, extremity pain, joint pain, joint swelling, joint redness, joint warmth or muscle weakness Skin/Breast: Denies: rash, pruritus, erythema, photosensitivity or new lesions Neuro: Denies: headache(s), numbness in extremities, weakness in extremities, sensory changes, lack of coordination, difficulty walking, frequent falls, dizziness, confusion, Slurred speech present, difficulty communicating thoughts, seizure-like activity or involuntary movements Endo: Denies: polyuria, polydipsia or tired all the time Edwin/Lymph: Denies: easy bruising or easy bleeding PFSH ED PFSH: Medical History Cardiac dysrhythmia CHF (congestive heart failure) In remission per patient. Dysthymic disorder GERD (gastroesophageal reflux disease) History of shingles HTN (hypertension) IBS (irritable bowel syndrome) IBS (irritable bowel syndrome) Palpitations Tobacco abuse Surgical History S/P section Family History Mother CAD (coronary artery disease) Thyroid disease Father CAD (coronary artery disease) Diabetes Heart disease Grandfather Heart disease Brother Diabetes Social History Smoking and tobacco/nicotine status: current every day tobacco/nicotine user Physical Exam Const: COMMON NORMALS: no acute distress, patient oriented x3 and alert GENERAL APPEARANCE: cooperative ORIENTATION/CONSCIOUSNESS: Yes awake, Yes oriented to person, Yes oriented to place and Yes oriented to time HENMT: COMMON NORMALS: normocephalic and atraumatic HEAD & SCALP: normocephalic and atraumatic FACE & SINUS: normal facial exam MOUTH: Normal oral and palatal mucosa present THROAT: posterior oropharynx normal Eye: COMMON NORMALS: Equal, round and reactive pupils present, EOMs intact bilaterally, conjunctivae normal and no scleral icterus GENERAL EYE: appearance normal, both eyes and all related structures ALIGNMENT: Yes alignment normal PERIORBITAL: periorbital findings normal CONJUNCTIVA: Yes conjunctivae normal PUPIL: Yes Equal, round and reactive pupils present Neck/C-Spine: COMMON NORMALS: full ROM GENERAL: Yes normal visual inspection Lymph: LYMPHATIC: no lymphadenopathy noted Chest: COMMONS NORMALS: normal inspection of the chest Breast/axilla inspection: Yes no chest deformity, asymmetry, normal contours, no nodules, masses, tenderness Resp: COMMON NORMALS: normal respiratory effort, No retractions, No use of accessory muscles and clear to auscultation bilaterally EFFORT & INSPECTION: Yes able to speak in complete sentences and Yes symmetric chest movement AUSCULTATION: clear to auscultation bilaterally Cardio: COMMON NORMALS: regular rate, regular rhythm and Peripheral pulses 2+ throughout RATE: regular rate RHYTHM: regular rhythm PERIPHERAL PULSES: Peripheral pulses 2+ throughout GI: COMMON NORMALS: Normal to inspection, nondistended, normoactive bowel sounds present, Soft to palpation, non-tender and No hepatosplenomegaly present INSPECTION: Yes normal to inspection AUSCULTATION: Yes normoactive bowel sounds PALPATION: Yes Soft to palpation and Yes No hepatosplenomegaly present RECTAL EXAM: deferred Extremity: COMMON NORMALS: normal to inspection GENERAL: Yes normal exam except as noted Neuro: COMMON NORMALS: patient oriented x3 SENSORIUM/ORIENTATION: Yes alert, Yes oriented to person, Yes oriented to place and Yes oriented to time CRANIAL NERVES: Yes CN normal except as noted Psych: COMMON NORMALS: mental status grossly normal, Normal thought process present, cooperative, activity/motor behavior normal, denies homicidal ideation and denies suicidal ideation THOUGHT PROCESS: Normal thought process present Skin: COMMON NORMALS: no rashes or lesions noted, no wounds and turgor normal GENERAL SKIN EXAM: no rashes or lesions noted and turgor normal Course Vital Signs: Vital signs: Vital Signs Temperature 98.7 F 02/17/23 12:39 Pulse Rate 73 02/17/23 13:22 Respiratory Rate 16 02/17/23 13:22 Blood Pressure 113/63 02/17/23 13:22 Pulse Oximetry 96 02/17/23 13:22 Oxygen Delivery Me thod Room Air 02/17/23 13:22 MDM - Abdominal Pain Medical Decision Making Patient was evaluated in the emergency department today for increased left lower quadrant abdominal discomfort. Differential diagnosis includes constipation, gastroenteritis, diverticulosis/diverticulitis. Patient underwent a KUB which revealed constipation and a nonspecific bowel gas pattern. Patient and I discussed treatment options which includes close monitoring for worsening abdominal discomfort or development of diarrhea or she is agreeable. We are going toNew symptom. We are going to discharge her home with instructions to return for worsening symptoms. She is to use stool softeners as well as laxative to help pass the stool. She can also trial mag citrate. All questions answered Lab Data Labs/Radiology: Radiology Impressions KUB X-Ray 02/17/23 13:09 IMPRESSION: Nonspecific bowel gas pattern. There is constipation. All radiology interpretation(s) finalized by discharge Discharge Plan Discharge Patient Disposition: Home Clinical Impression: Constipation Condition: Stable Prescriptions: No Action acetaminophen [Tylenol Extra Strength] 500 mg tablet 500 mg PO QAM ibuprofen [Advil] 200 mg tablet 200 mg PO Q4H PRN (Reason: pain/fever) multivitamin Tablet 1 tab PO QAM cetirizine-pseudoephedrine [Zyrtec-D] 5-120 mg tablet extended release 12 hr 1 tab PO QAM carvedilol 3.125 mg tablet 3.125 mg PO BID Qty: 180 3RF Rx Instructions: must administer with a meal/food furosemide 40 mg tablet 40 mg PO DAILY Qty: 90 3RF potassium chloride 20 mEq tablet,ER particles/crystals 40 meq PO DAILY Qty: 180 3RF aspirin 81 mg Tablet,Delayed Release (Dr/Ec) 81 mg PO DAILY omeprazole 40 mg capsule,delayed release(DR/EC) 40 mg PO DAILY lisinopril 10 mg tablet 10 mg PO QPM Discharge Orders: Discharge ED (Routine); Ordered 02/17/23 Ordered By: Francisco Brooke Referrals: Fidel Benedict DO [Primary Care Provider] - Discharge Diet: Advance as tolerated Discharge Activity: Resume usual activity Patient Instructions: Constipation (ED), Pain Management Activity Restrictions/Additional Instructions: Please return to the emergency department for new, concerning, worsening symptom. When she did trial stool softeners along with a laxative like MiraLAX. He can also trial mag citrate. Coding Level of Care Code ED Transportation Maintenance Supervisor for Cristal Duncan
== END 2023-02-17 14:45 | disposition home or self-care (01) ==
PROVIDERS: Emergency Provider Nurse Practitioner; PCP Internal Medicine
DX: K59.00 Constipation, unspecified (principal); Z79.82 Long term (current) use of aspirin; F17.210 Nicotine dependence, cigarettes, uncomplicated; I11.0 Hypertensive heart disease with heart failure; I50.9 Heart failure, unspecified
CPT/HCPCS: 74018; 99283

== ENCOUNTER 2024-07-08 13:04 | Inpatient (IN) | payer OTHER, SELFPAY ==
[2024-07-08] VITALS (10 sets, daily range): BP systolic 114–129; BP diastolic 62–81; PULSE 67–89; RESP 14–20; TEMP 36.6–36.7; O2SAT 97–100; BMI 24.7
[2024-07-08 13:47] LABS: Bilirubin Urine Negative (Negative); Blood Urine Negative (Negative); Glucose Urine UA Negative (Normal); Ketones Urine Negative (Negative); Leukocyte Esterase Urine Negative (Negative); Nitrate Urine Negative (Negative); Protein Urine Negative (Negative); Specific Gravity, Urine 1.005 (1.005-1.030); Urine Appearance Clear (CLEAR); Urine Color Yellow (Yellow); Urobilinogen Urine 0.2 mg/dL (Negative); pH Urine 5.5 (5-7)
[2024-07-08 13:52] LABS: Add Urine Microscopic? YES; Bacteria Urine None Seen /hpf; RBC Urine 0-2 /hpf (0-2); WBC Urine 0-5 /hpf (0-5)
--- NOTE | 2024-07-08 14:12 | CT_ITS ---
WS: [id number] CT ABDOMEN PELVIS TECHNIQUE: Contrast-enhanced CT of the abdomen and pelvis with coronal and sagittal reformatted images. CLINICAL INFORMATION: abd pain COMPARISON: None. DLP: 635.[address] scans at [facility] use at least one of these dose optimization techniques: automated exposure control; mA and/or kV adjustment per patient size (includes targeted exams where dose is matched to clinical indication); or iterative reconstruction. FINDINGS: Evidence of acute diverticulitis with diffuse thickening and enhancement involving the sigmoid colon. Associated small peripheral enhancing abscess measuring 2.7 x 2.5 cm with surrounding induration. This is contiguous with the dome of the bladder eccentric to the LEFT with diffuse thickening and enhan cement involving the LEFT aspect of the bladder wall. No visualized air. No apparent direct vesicular communication but patient at risk for fistula formation. Traversing ureter just posterior to the abscess. No hydronephrosis in the LEFT kidney. Fat-containing LEFT inguinal hernia. Hepatic steatosis. Cavernous hemangioma RIGHT hepatic lobe. Hepatomegaly. A few splenic granulomas. Normal portal vein and splenic vein. Tiny esophageal hiatal hernia. Celiac and SMA are patent. Adrenal glands are normal. No hydronephrosis. LEFT renal cyst. Tiny fat- containing umbilical hernia. Small amount of free fluid in the pelvis. CT/CT abdomen pelvis w con* [id number] IMPRESSION: 1. Evidence of acute diverticulitis with peripheral enhancing abscess formatio n. 2. Peripherally enhancing abscess directly abuts the LEFT aspect of the bladde r with diffuse thickening and enhancement of the underlying bladder wall. No vi sualized air. Patient at risk for fistula formation. 3. Recommend follow-up to resolution to exclude underlying neoplasm in a patie nt this age. 4. No hydronephrosis in either kidney. LEFT ureter courses along the lateral a spect of the abscess and lies just posterior to the abscess although not obstru cted. 5. No other acute findings. Notified Maria Teresa Cao MD at 07/08/2024 3:08 PM.
--- NOTE | 2024-07-08 14:16 | W.ED.ABDPA2 ---
HPI - Abdominal Pain General: Chief Complaint: Abdominal Pain Stated Complaint: abd pain, fever, little bowel movements Time Seen by Provider: 07/08/24 13:32 Source: patient Mode of arrival: ambulatory Limitations: no limitations History of Present Illness: 59-year-old female states been having abdominal pain for last 3 days states been a cramping pain in her lower abdomen is worse with eating. She has had some nausea she denies any vomiting or diarrhea or constipation she denies any fever states pain is currently 5 out of 10 denies any dysuria or discharge Associated Symptoms: Reports nausea; Denies chills, diarrhea, dysuria, fever(s) and vomiting Related Data Home Medications ?Medication ?Instructions ?Recorded ?Confirmed acetaminophen 500 mg tablet 1,000 mg PO QAM 12/03/20 07/08/24 (Tylenol Extra Strength) cetirizine 5 mg-pseudoephedrine ER 1 tab PO QAM 12/03/20 07/08/24 120 mg tablet,extended release,12hr (Zyrtec-D) ibuprofen 200 mg tablet (Advil) 200 mg PO Q4H PRN pain/fever 12/03/20 07/08/24 multivitamin 1 tab PO QAM 12/03/20 07/08/24 aspirin 81 mg tablet,delayed 81 mg PO DAILY 01/12/21 07/08/24 release omeprazole 40 mg capsule,delayed 40 mg PO DAILY 02/17/23 07/08/24 release metformin 500 mg tablet 500 mg PO BID 11/13/23 07/08/24 Previous Rx's ?Medication ?Instructions ?Recorded carvedilol 3.125 mg tablet 3.125 mg PO BID #180 tabs 05/14/24 furosemide 40 mg tablet 40 mg PO DAILY #90 tabs 05/14/24 lisinopril 10 mg tablet See Rx Instructions .Route 05/14/24 .COMPLEX #90 tabs potassium chloride 20 mEq 40 meq (2 x 20 mEq) PO DAILY #180 05/14/24 tablet,extended release(part/cryst) tabs Allergies Allergy/AdvReac Type Severity Reaction Status Date / Time Sulfa (Sulfonamide Allergy Severe ALGY-Rash Verified 05/14/24 10:41 Antibiotics) Review of Systems Const: Denies: fever(s), chills, body aches or change in appetite Eyes: Denies: eye discomfort ENMT: Denies: throat pain or dental pain Card: Denies: chest pain Resp: Denies: dyspnea GI: Reports: abdominal pain and nausea; Denies: vomiting or diarrhea : Denies: dysuria Musc: Denies: neck pain or back pain Skin/Breast: Denies: rash Neuro: Denies: headache(s) PFS ED PFSH: Medical History Nonischemic cardiomyopathy History of shingles GERD (gastroesophageal reflux disease) IBS (irritable bowel syndrome) Dysthymic disorder Cardiac dysrhythmia Palpitations IBS (irritable bowel syndrome) CHF (congestive heart failure) In remission per patient. Tobacco abuse HTN (hypertension) Surgical History S/P section Family History Mother CAD (coronary artery disease) Thyroid disease Father CAD (coronary artery disease) Diabetes Heart disease Grandfather Heart disease Brother Diabetes Social History Smoking and tobacco/nicotine status: current every day tobacco/nicotine user Physical Exam Const: COMMON NORMALS: no acute distress, patient oriented x3 and healthy appearing HENMT: COMMON NORMALS: normocephalic and atraumatic HEAD & SCALP: normocephalic and atraumatic Eye: COMMON NORMALS: conjunctivae normal CONJUNCTIVA: Yes conjunctivae normal Neck/C-Spine: COMMON NORMALS: full ROM and supple Chest: COMMONS NORMALS: normal inspection of the chest Resp: COMMON NORMALS: normal respiratory effort Cardio: COMMON NORMALS: regular rate, regular rhythm and No murmurs present (Cardio) RATE: regular rate RHYTHM: regular rhythm GI: COMMON NORMALS: Normal to inspection, nondistended, normoactive bowel sounds present, Soft to palpation and no masses PALPATION: Yes Soft to palpation OTHER: mild lower abd tenderness Extremity: COMMON NORMALS: normal to inspection and full ROM Neuro: COMMON NORMALS: patient oriented x3, moves all extremities and no focal motor deficits Psych: COMMON NORMALS: mental status grossly normal, Normal thought process present and cooperative THOUGHT PROCESS: Normal thought process present Skin: COMMON NORMALS: no rashes or lesions noted and no wounds GENERAL SKIN EXAM: no rashes or lesions noted Course Vital Signs: Vital signs: Vital Signs Temperature 98.1 F 07/08/24 13:09 Pulse Rate 89 07/08/24 13:09 Respiratory Rate 14 07/08/24 15:34 Blood Pressure 123/75 07/08/24 13:09 Pulse Oximetry 99 07/08/24 13:09 Oxygen Delivery Me thod Room Air 07/08/24 13:09 MDM - Abdominal Pain Medical Decision Making Patient presents for diverticulitis I did speak to surgery along with hospitalist will admit at this time for IV antibiotics. Medical Records I reviewed the patient's medical records. Lab Data I reviewed the patient's lab results. 07/08/24 15:30 07/08/24 13:57 Labs/Radiology: Radiology Impressions Abdomen/Pelvis CT 07/08/24 14:12 IMPRESSION: 1. Evidence of acute diverticulitis with peripheral enhancing abscess formation. 2. Peripherally enhancing abscess directly abuts the LEFT aspect of the bladder with diffuse thickening and enhancement of the underlying bladder wall. No visualized air. Patient at risk for fistula formation. 3. Recommend follow-up to resolution to exclude underlying neoplasm in a patient this age. 4. No hydronephrosis in either kidney. LEFT ureter courses along the lateral aspect of the abscess and lies just posterior to the abscess although not obstructed. 5. No other acute findings. Notified Maria Teresa Cao MD at 07/08/2024 3:08 PM. Laboratory Results WBC Cancelled 07/08/24 13:57 Corrected WBC Cancelled 07/08/24 13:57 RBC Cancelled 07/08/24 13:57 Hgb Cancelled 07/08/24 13:57 Hct Cancelled 07/08/24 13:57 MCV Cancelled 07/08/24 13:57 MCH Cancelled 07/08/24 13:57 MCHC Cancelled 07/08/24 13:57 RDW Cancelled 07/08/24 13:57 Plt Count Cancelled 07/08/24 13:57 MPV Cancelled 07/08/24 13:57 Gran % Cancelled 07/08/24 13:57 Neut % (Auto) Cancelled 07/08/24 13:57 Lymph % (Auto) Cancelled 07/08/24 13:57 Lyon % (Auto) Cancelled 07/08/24 13:57 Eos % (Auto) Cancelled 07/08/24 13:57 Baso % (Auto) Cancelled 07/08/24 13:57 Neut # (Auto) Cancelled 07/08/24 13:57 Lymph # (Auto) Cancelled 07/08/24 13:57 Lyon # (Auto) Cancelled 07/08/24 13:57 Eos # (Auto) Cancelled 07/08/24 13:57 Baso # (Auto) Cancelled 07/08/24 13:57 Absolute Gran (auto) Cancelled 07/08/24 13:57 Nucleated RBC % (auto) Cancelled 07/08/24 13:57 Nucleated RBCs # Cancelled 07/08/24 13:57 Sodium 137 mmol/L (136-145) 07/08/24 13:57 Potassium 3.4 mmol/L (3.5-5.1) L 07/08/24 13:57 Chloride 102 mmol/L (98-107) 07/08/24 13:57 Carbon Dioxide 24 mmol/L (22-29) 07/08/24 13:57 Anion Gap 14.4 (5-19) 07/08/24 13:57 BUN 8 mg/dL (6-20) 07/08/24 13:57 Creatinine 0.6 mg/dL (0.5-0.9) 07/08/24 13:57 GFR Calculation 103.0 mL/min (90-130) 07/08/24 13:57 Glucose 113 mg/dL (65-115) 07/08/24 13:57 Calculated Osmolality 283 mOsm/kg (285-295) L 07/08/24 13:57 Calcium 9.4 mg/dL (8.5-10.5) 07/08/24 13:57 Total Bilirubin 0.3 mg/dL (0.15-1.2) 07/08/24 13:57 AST 12 U/L (0-32) 07/08/24 13:57 ALT 12 U/L (0-33) 07/08/24 13:57 Alkaline Phosphatase 91 U/L (35-105) 07/08/24 13:57 Total Protein 6.7 g/dL (6.6-8.7) 07/08/24 13:57 Albumin 3.8 g/dL (3.5-5.2) 07/08/24 13:57 Globulin 2.9 g/dL (1.3-4.6) 07/08/24 13:57 Lipase 29 U/L (13-60) 07/08/24 13:57 Urine Color Yellow (Yellow) 07/08/24 13:14 Urine Appearance Clear (CLEAR) 07/08/24 13:14 Urine pH 5.5 (5-7) 07/08/24 13:14 Ur Specific Merrill 1.005 (1.005-1.030) 07/08/24 13:14 Urine Protein Negative (Negative) 07/08/24 13:14 Urine Glucose (UA) Negative (Normal) 07/08/24 13:14 Urine Ketones Negative (Negative) 07/08/24 13:14 Urine Blood Negative (Negative) 07/08/24 13:14 Urine Nitrate Negative (Negative) 07/08/24 13:14 Urine Bilirubin Negative (Negative) 07/08/24 13:14 Urine Urobilinogen 0.2 mg/dL (Negative) 07/08/24 13:14 Ur Leukocyte Esterase Negative (Negative) 07/08/24 13:14 Urine RBC 0-2 /hpf (0-2) 07/08/24 13:14 Urine WBC 0-5 /hpf (0-5) 07/08/24 13:14 Ur Squamous Epith Cells 11-20 /hpf (0-5) H 07/08/24 13:14 Amorphous Sediment Not Reportable 07/08/24 13:14 Urine Bacteria None seen /hpf (NONE) 07/08/24 13:14 Hyaline Casts 0.40 /lpf 07/08/24 13:14 All radiology interpretation(s) finalized by discharge Discharge Plan Discharge Patient Disposition: Admitted As Inpatient Clinical Impression: Diverticulitis Condition: Stable Prescriptions: No Action acetaminophen [Tylenol Extra Strength] 500 mg tablet 1,000 mg PO QAM ibuprofen [Advil] 200 mg tablet 200 mg PO Q4H PRN (Reason: pain/fever) multivitamin Tablet 1 tab PO QAM cetirizine-pseudoephedrine [Zyrtec-D] 5-120 mg tablet extended release 12 hr 1 tab PO QAM metformin 500 mg tablet 500 mg PO BID carvedilol 3.125 mg tablet 3.125 mg PO BID Qty: 180 3RF Rx Instructions: must administer with a meal/food furosemide 40 mg tablet 40 mg PO DAILY Qty: 90 3RF lisinopril 10 mg tablet See Rx Instructions .ROUTE .COMPLEX Qty: 90 3RF Dose Instruction: TAKE 1 TABLET BY MOUTH EVERY DAY Rx Instructions: TAKE 1 TABLET BY MOUTH EVERY DAY potassium chloride 20 mEq tablet,ER particles/crystals 40 meq PO DAILY Qty: 180 3RF aspirin 81 mg Tablet,Delayed Release (Dr/Ec) 81 mg PO DAILY omeprazole 40 mg capsule,delayed release(DR/EC) 40 mg PO DAILY Referrals: Edmond Hebert DO [Primary Care Provider] - Print Language: [place]aguayan Coding Level of Care Code ED Patient Support Partner for Cristal Duncan
[2024-07-08 14:29] LABS: Alanine Aminotransferase 12 U/L (0-33); Albumin Level 3.8 g/dL (3.5-5.2); Alkaline Phosphatase 91 U/L (35-105); Anion Gap 14.4 (5-19); Aspartate Amino Transferase 12 U/L (0-32); Blood Urea Nitrogen 8 mg/dL (6-20); Calcium 9.4 mg/dL (8.5-10.5); Carbon Dioxide 24 mmol/L (22-29); Chloride 102 mmol/L (98-107); Creatinine Clr Calc Pharmacy 110.9111; Globulin 2.9 g/dL (1.3-4.6); Glucose 113 mg/dL (65-115); Lipase 29 U/L (13-60); Osmolality Calculated 283 mOsm/kg (285-295); Potassium 3.4 mmol/L (3.5-5.1); Sodium 137 mmol/L (136-145); Total Bilirubin 0.3 mg/dL (0.15-1.2); Total Protein 6.7 g/dL (6.6-8.7)
[2024-07-08] MEDS: ondansetron 2 mg/ML SDV 2 mL 4 MG IVP (15:33)
[2024-07-08] MEDS: morphine 4 mg/mL SDV 1 mL IVP ×2 (15:34→21:33)
[2024-07-08] MEDS: ciprofloxacin 400 MG/200 ML PREMIX 200 MG IV (15:38)
[2024-07-08 15:58] LABS: Basophils # 0.1 10^3/uL (0.0-0.1); Basophils % 0.6 %; Eosinophils # 0.4 10^3/uL (0.0-0.8); Hematocrit 39.7 % (36-47); Lymphocytes # 4.3 10^3/uL (0.8-4.8); Lymphocytes % 30.4 %; Mean Corpuscular HGB Conc 34.3 g/dL (30-55); Mean Corpuscular Hemoglobin 32.5 pg (27-33); Mean Corpuscular Volume 94.7 fl (85-98); Mean Platelet Volume 9.9 fL (7.4-10.4); Monocytes # 1.2 10^3/uL (0.2-0.9); Monocytes % 8.3 %; Neutrophils # 8.07 10^3/uL (1.8-7.7); Neutrophils % 57.4 %; Nucleated Red Blood Cells % 0 %; Platelet Count 319 10^3/cmm (157-399); Red Blood Count 4.19 10^6/uL (3.85-5.65); Red Cell Distribution Width 11.9 % (12.1-15.1); White Blood Count 14.06 10^3/uL (3.29-11.43)
--- NOTE | 2024-07-08 16:37 | PC.NURSE ---
This nurse took report from GREY Wilson in ER at [phone].
[2024-07-08] MEDS: metroNIDAZOLE IV 500 MG/100 ML PREMIX 100 MG IV (16:40)
[2024-07-08 16:46] LABS: Slide Review Slide Review Perform
--- NOTE | 2024-07-08 16:50 | PM.CONSULT ---
Providers/Reason For Consult Consulting Physician/Specialty*: Dr. Rasmussen general surgery Reason for Consult*: Diverticulitis Attending Physician: Kristine Wilson MD Primary Care Provider: Edmond Hebert DO History of Present Illness History of Present Illness Fabby Yang is a 59 year old female who presented with acute diverticulitis with a small abscess abutting the bladder. Patient has never passed any gas when urinating. No fecaluria. This is her second episode of diverticulitis. Patient had a colonoscopy a few years ago which only demonstrated diverticulosis. No family history of colon cancer in first-degree relatives. No hematochezia. Patient does endorse left lower quadrant pain. Medications/Allergies Home Medications ?Medication ?Instructions ?Recorded ?Confirmed ?Last Taken ?Type acetaminophen 500 mg tablet 1,000 mg PO QAM 12/03/20 07/08/24 07/08/24 07:00 History (Tylenol Extra Strength) cetirizine 5 mg-pseudoephedrine ER 1 tab PO QAM 12/03/20 07/08/24 07/07/24 History 120 mg tablet,extended release,12hr (Zyrtec-D) ibuprofen 200 mg tablet (Advil) 200 mg PO Q4H PRN pain/fever 12/03/20 07/08/24 01/10/21 History multivitamin 1 tab PO QAM 12/03/20 07/08/24 07/08/24 08:00 History aspirin 81 mg tablet,delayed 81 mg PO DAILY 01/12/21 07/08/24 07/08/24 08:00 History release omeprazole 40 mg capsule,delayed 40 mg PO DAILY 02/17/23 07/08/24 07/08/24 08:00 History release metformin 500 mg tablet 500 mg PO BID 11/13/23 07/08/24 07/08/24 08:00 History carvedilol 3.125 mg tablet 3.125 mg PO BID #180 tabs 05/14/24 07/08/24 07/07/24 17:00 Rx furosemide 40 mg tablet 40 mg PO DAILY #90 tabs 05/14/24 07/08/24 07/07/24 Rx lisinopril 10 mg tablet See Rx Instructions .Route 05/14/24 07/08/24 07/07/24 Rx .COMPLEX #90 tabs potassium chloride 20 mEq 40 meq (2 x 20 mEq) PO DAILY #180 05/14/24 07/08/24 07/07/24 Rx tablet,extended release(part/cryst) tabs Allergies Allergy/AdvReac Type Severity Reaction Status Date / Time Sulfa (Sulfonamide Allergy Severe ALGY-Rash Verified 05/14/24 10:41 Antibiotics) PFSH Acute PFSH: Medical History (Updated 07/08/24 @ 17:11 by Kristine Wilson MD) Diabetes mellitus, type II Vaginal vault prolapse Cystocele 1 para 1 Nonischemic cardiomyopathy History of shingles GERD (gastroesophageal reflux disease) Dysthymic disorder Cardiac dysrhythmia Palpitations IBS (irritable bowel syndrome) CHF (congestive heart failure) In remission per patient. Tobacco abuse HTN (hypertension) Surgical History (Updated 07/08/24 @ 17:11 by Kristine Wilson MD) History of cardiac catheterization Status post laparoscopic hysterectomy (~12/2020) Dr Ye, with bilateral salpingectomy, right oophorectomy S/P section Family History Mother CAD (coronary artery disease) Thyroid disease Father CAD (coronary artery disease) Diabetes Heart disease Grandfather Heart disease Brother Diabetes Social History Smoking and tobacco/nicotine status: current every day tobacco/nicotine user Vitals/I&O/Wt Last Vital Signs Temp 98.1 F 07/08/24 13:09 Pulse 89 07/08/24 13:09 Resp 14 07/08/24 15:34 BP 123/75 07/08/24 13:09 Pulse Ox 99 07/08/24 13:09 O2 Del Method Room Air 07/08/24 13:09 Weight last 48 hrs Weight 163 lb Physical Exam Narrative: Chest: Unlabored breathing room air. No lymphadenopathy. Heart: Regular rate and rhythm. Abdomen: Soft, tender left lower quadrant, nondistended. No masses or lymphadenopathy. Data 07/08/24 15:30 07/08/24 13:57 Micro: Microbiology 07/08/24 15:36 Blood Culture - Preliminary Blood SPECIMEN COLLECTED 07/08/24 15:30 Blood Culture - Preliminary Blood SPECIMEN COLLECTED A&P Assessment and plan (1) Diverticulitis: Plan 59-year-old female who presented with diverticulitis and a small abscess abutting the bladder. Clinically no indication of there is a colovesical fistula. Abdomen is benign. Recommend continuing bowel rest, IV fluid resuscitation, IV antibiotics. Once patient is pain-free can advance to clear liquid diet and start p.o. antibiotics. Patient should follow-up with a colorectal surgeon once discharged for workup of colovesical fistula, interval colonoscopy, and elective surgery. PDMP PDMP Reviewed: Not Reviewed Coding Level of Care Code 73674 Diagnoses Diverticulitis K57.92 Time Spent (min) 30
--- NOTE | 2024-07-08 17:04 | PM.HP ---
Providers/Chief Complaint Admitting Physician: Kristine Wilson MD Primary Care Provider: Edmond Hebert DO Chief Complaint: abd pain, fever, little bowel movements History of Present Illness Fabby Yang is a 59 year old female who presented to the emergency room with chief complaint of progressively worsening abdominal pain. She has had symptoms for about 2 weeks in total. Initially she thought she may have had a urinary tract infection. She was seen at a walk-in clinic but urinalysis was unremarkable. She continued to have pain in the lower abdomen left side worse than the right and has not been able to get very comfortable with it. Also had decreased bowel movements. Last bowel movement was this morning and was a small amount of soft stool. She describes significant discomfort with attempts to pass gas. No blood has been noted. Abdominal pain has been moderate to severe in nature eventually prompting the ER visit.Area of most intense discomfort is in the left lower quadrant. Workup in the emergency room today revealed elevated white blood count and CT findings of diverticulitis with a small abscess near the bladder. Surgery was consulted and did not feel that there was clinical evidence of a colovesical fistula at this time. Urinalysis was again checked and was negative. Recommendation from surgical standpoint was admission with IV fluids, IV antibiotics, bowel rest and close monitoring. Mrs. Yang has had previous episode of diverticulitis. Colonoscopy a few years back showed diverticulosis. In he had blateral salpingectomy and right oophorectomy. After that she developed vaginal wall prolapse and cystocele that have been managed conservatively. Before the symptoms started a couple of weeks ago no specific issues otherwise noted. Review of Systems General: Reports: Other (ROS as per HPI or as otherwise noted here) Const: Reports: fatigue and malaise; Denies: fever(s) ENMT: Reports: dry mouth Card: Denies: chest pain, edema, dyspnea on exertion or orthopnea Resp: Denies: dyspnea, productive cough or non-productive cough Psych: Reports: other (Craving a cigarette significantly) Edwin/Lymph: Denies: easy bleeding Medications/Allergies Home Medications ?Medication ?Instructions ?Recorded ?Confirmed ?Last Taken ?Type acetaminophen 500 mg tablet 1,000 mg PO QAM 12/03/20 07/08/24 07/08/24 07:00 History (Tylenol Extra Strength) cetirizine 5 mg-pseudoephedrine ER 1 tab PO QAM 12/03/20 07/08/24 07/07/24 History 120 mg tablet,extended release,12hr (Zyrtec-D) ibuprofen 200 mg tablet (Advil) 200 mg PO Q4H PRN pain/fever 12/03/20 07/08/24 01/10/21 History multivitamin 1 tab PO QAM 12/03/20 07/08/24 07/08/24 08:00 History aspirin 81 mg tablet,delayed 81 mg PO DAILY 01/12/21 07/08/24 07/08/24 08:00 History release omeprazole 40 mg capsule,delayed 40 mg PO DAILY 02/17/23 07/08/24 07/08/24 08:00 History release metformin 500 mg tablet 500 mg PO BID 11/13/23 07/08/24 07/08/24 08:00 History carvedilol 3.125 mg tablet 3.125 mg PO BID #180 tabs 05/14/24 07/08/24 07/07/24 17:00 Rx furosemide 40 mg tablet 40 mg PO DAILY #90 tabs 05/14/24 07/08/24 07/07/24 Rx lisinopril 10 mg tablet See Rx Instructions .Route 05/14/24 07/08/24 07/07/24 Rx .COMPLEX #90 tabs potassium chloride 20 mEq 40 meq (2 x 20 mEq) PO DAILY #180 05/14/24 07/08/24 07/07/24 Rx tablet,extended release(part/cryst) tabs Allergies Allergy/AdvReac Type Severity Reaction Status Date / Time Sulfa (Sulfonamide Allergy Severe ALGY-Rash Verified 05/14/24 10:41 Antibiotics) PFSH Acute PFSH: Medical History (Updated 07/08/24 @ 20:51 by Kristine Wilson MD) Diabetes mellitus, type II Vaginal vault prolapse Cystocele 1 para 1 Nonischemic cardiomyopathy History of shingles GERD (gastroesophageal reflux disease) Dysthymic disorder Cardiac dysrhythmia Palpitations IBS (irritable bowel syndrome) CHF (congestive heart failure) In remission per patient. Tobacco abuse HTN (hypertension) Surgical History (Updated 07/08/24 @ 20:51 by Kristine Wilson MD) History of cardiac catheterization Status post laparoscopic hysterectomy (~12/2020) Dr Ye, with bilateral salpingectomy, right oophorectomy S/P section Family History Mother CAD (coronary artery disease) Thyroid disease Father CAD (coronary artery disease) Diabetes Heart disease Grandfather Heart disease Brother Diabetes Social History Smoking and tobacco/nicotine status: current every day tobacco/nicotine user Vitals/I&O/Wt Last Vital Signs Temp 98.1 F 07/08/24 13:09 Pulse 72 07/08/24 15:42 Resp 14 07/08/24 15:34 BP 125/72 07/08/24 15:42 Pulse Ox 98 07/08/24 15:42 O2 Del Method Room Air 07/08/24 13:09 07/08/24 07/08/24 07/08/24 06:59 14:59 22:59 Intake Total 200 / 200 Balance 200 / 200 Weight last 48 hrs Weight 73.936 kg Physical Exam Narrative: Patient is Awake and alert, able to provide history. Normocephalic. Mild conjunctival injection. Oropharynx with dry mucous membranes. Neck is supple. Lungs are clear to auscultation. Cardiovascular exam reveals a regular rate and rhythm. Abdomen is soft. Some guarding in the left lower quadrant where she is most tender. No rebound tenderness. Decreased bowel sounds. No pitting edema. Oriented to person, place and situation and asked good questions. Data 07/08/24 15:30 07/08/24 13:57 Other Labs: Radiology Impressions Abdomen/Pelvis CT 07/08/24 14:12 IMPRESSION: 1. Evidence of acute diverticulitis with peripheral enhancing abscess formation. 2. Peripherally enhancing abscess directly abuts the LEFT aspect of the bladder with diffuse thickening and enhancement of the underlying bladder wall. No visualized air. Patient at risk for fistula formation. 3. Recommend follow-up to resolution to exclude underlying neoplasm in a patient this age. 4. No hydronephrosis in either kidney. LEFT ureter courses along the lateral aspect of the abscess and lies just posterior to the abscess although not obstructed. 5. No other acute findings. Notified Maria Teresa Cao MD at 07/08/2024 3:08 PM. Laboratory Results WBC 14.06 10^3/uL (3.29-11.43) H 07/08/24 15:30 Corrected WBC Cancelled 07/08/24 13:57 RBC 4.19 10^6/uL (3.85-5.65) 07/08/24 15:30 Hgb 13.60 g/dL (11.27-16.99) 07/08/24 15:30 Hct 39.7 % (36-47) 07/08/24 15:30 MCV 94.7 fl (85-98) 07/08/24 15:30 MCH 32.5 pg (27-33) 07/08/24 15:30 MCHC 34.3 g/dL (30-55) 07/08/24 15:30 RDW 11.9 % (12.1-15.1) L 07/08/24 15:30 Plt Count 319 10^3/cmm (157-399) 07/08/24 15:30 MPV 9.9 fL (7.4-10.4) 07/08/24 15:30 Gran % Cancelled 07/08/24 13:57 Neut % (Auto) 57.4 % 07/08/24 15:30 Lymph % (Auto) 30.4 % 07/08/24 15:30 Placer % (Auto) 8.3 % 07/08/24 15:30 Eos % (Auto) 3.0 % 07/08/24 15:30 Baso % (Auto) 0.6 % 07/08/24 15:30 Neut # (Auto) 8.07 10^3/uL (1.8-7.7) H 07/08/24 15:30 Lymph # (Auto) 4.3 10^3/uL (0.8-4.8) 07/08/24 15:30 Placer # (Auto) 1.2 10^3/uL (0.2-0.9) H 07/08/24 15:30 Eos # (Auto) 0.4 10^3/uL (0.0-0.8) 07/08/24 15:30 Baso # (Auto) 0.1 10^3/uL (0.0-0.1) 07/08/24 15:30 Absolute Gran (auto) Cancelled 07/08/24 13:57 Nucleated RBC % (auto) 0 % 07/08/24 15:30 Nucleated RBCs # 0.0 /100WBC 07/08/24 15:30 Sodium 137 mmol/L (136-145) 07/08/24 13:57 Potassium 3.4 mmol/L (3.5-5.1) L 07/08/24 13:57 Chloride 102 mmol/L (98-107) 07/08/24 13:57 Carbon Dioxide 24 mmol/L (22-29) 07/08/24 13:57 Anion Gap 14.4 (5-19) 07/08/24 13:57 BUN 8 mg/dL (6-20) 07/08/24 13:57 Creatinine 0.6 mg/dL (0.5-0.9) 07/08/24 13:57 GFR Calculation 103.0 mL/min (90-130) 07/08/24 13:57 Glucose 113 mg/dL (65-115) 07/08/24 13:57 Calculated Osmolality 283 mOsm/kg (285-295) L 07/08/24 13:57 Calcium 9.4 mg/dL (8.5-10.5) 07/08/24 13:57 Total Bilirubin 0.3 mg/dL (0.15-1.2) 07/08/24 13:57 AST 12 U/L (0-32) 07/08/24 13:57 ALT 12 U/L (0-33) 07/08/24 13:57 Alkaline Phosphatase 91 U/L (35-105) 07/08/24 13:57 Total Protein 6.7 g/dL (6.6-8.7) 07/08/24 13:57 Albumin 3.8 g/dL (3.5-5.2) 07/08/24 13:57 Globulin 2.9 g/dL (1.3-4.6) 07/08/24 13:57 Lipase 29 U/L (13-60) 07/08/24 13:57 Urine Color Yellow (Yellow) 07/08/24 13:14 Urine Appearance Clear (CLEAR) 07/08/24 13:14 Urine pH 5.5 (5-7) 07/08/24 13:14 Ur Specific Carroll 1.005 (1.005-1.030) 07/08/24 13:14 Urine Protein Negative (Negative) 07/08/24 13:14 Urine Glucose (UA) Negative (Normal) 07/08/24 13:14 Urine Ketones Negative (Negative) 07/08/24 13:14 Urine Blood Negative (Negative) 07/08/24 13:14 Urine Nitrate Negative (Negative) 07/08/24 13:14 Urine Bilirubin Negative (Negative) 07/08/24 13:14 Urine Urobilinogen 0.2 mg/dL (Negative) 07/08/24 13:14 Ur Leukocyte Esterase Negative (Negative) 07/08/24 13:14 Urine RBC 0-2 /hpf (0-2) 07/08/24 13:14 Urine WBC 0-5 /hpf (0-5) 07/08/24 13:14 Ur Squamous Epith Cells 11-20 /hpf (0-5) H 07/08/24 13:14 Amorphous Sediment Not Reportable 07/08/24 13:14 Urine Bacteria None seen /hpf (NONE) 07/08/24 13:14 Hyaline Casts 0.40 /lpf 07/08/24 13:14 Micro: Microbiology 07/08/24 15:36 Blood Culture - Preliminary Blood SPECIMEN COLLECTED 07/08/24 15:30 Blood Culture - Preliminary Blood SPECIMEN COLLECTED A&P Assessment and plan (1) Diverticulitis: Acute diverticulitis in a patient with known diverticulosis. Currently with leukocytosis and stable vital signs but at risk for progressively worsening disease acutely and chronically without appropriate management - Inpatient admission - IV antibiotics - Fluids - Pain control - Reviewed findings and concerns with patient including the Plan to monitor how she does with treatment described. If she improves options are for discharge home with continued oral antibiotics and outpatient follow-up. If she does not improve consideration for repeat noninvasive evaluation and potential need for surgical intervention will have to be considered. Patient is aware that even with appropriate treatment things could get worse but hopefully she responds to treatment plan with good results. Explained the importance of bowel rest and overall management plan as well (2) Colonic diverticular abscess: Has a small abscess near the bladder noted on CT imaging but no evidence of a colovesical fistula presently - Will need follow up to ensure resolution and may require specialty surgery not available locally given described location between colon and bladder should she require invasive intervention - MOnitor for signs of colovesical fistula (3) Diabetes mellitus, type II: [id number], chronically on metformin which is presently held - Sliding scale insulin and glucose monitoring for now Qualifiers: Diabetes mellitus salvage determiner insulin use: without care home use Diabetes mellitus complication status: without complication Qualified Code(s): E11.9 - Type 2 diabetes mellitus without complications (4) HTN (hypertension): Chronically on carvedilol, lisinopril both of which are held due to n.p.o. status - IV metoprolol as needed - Can consider IV enalapril if needed but blood pressures currently at lower range Qualifiers: Hypertension type: primary hypertension Qualified Code(s): I10 - Essential (primary) hypertension (5) Nonischemic cardiomyopathy: Has had previous ejection fractions as low as in the 30s percentile but more recent echocardiograms were improved. Chronically managed with furosemide and potassium replacement and has not had acute symptoms for some time. Does take daily aspirin. - Holding home lasix and potassium presently, aspirin held - Monitor for fluid overload with hydration Plan Chronically on PPI which I will continue Home cetirizine held due to npo status VTE prophylaxis: Lovenox, which will need held if requires any surgical or invasive intervention GI Prophylaxis: PPI IV as NPO right now Antibiotics: Cipro and Flagyl started 07/08/24 Pending studies: blood cultures, am labs Telemetry: not currently indicated Curry: not currently indicated Line(s): peripheral IVs Disposition plan: Home with outpatient follow up to pcp and surgery anticipated, along with oral antibiotics at discharge Code Status: Full Code Supportive care otherwise Findings, concerns and plans were discussed with patient and she was given an opportunity to ask questions PDMP PDMP Reviewed: Last Reviewed 07/08/24 20:51 by Kristine Wilson MD Attestations Medical Necessity Statement*: Anticipated stay greater than two midnights In this patient with acute diverticulitis with diverticular abscess abutting the bladder. Requiring IV antibiotics, bowel rest, IV fluids and pain control currently. Diagnoses Diverticulitis K57.92 Colonic diverticular abscess K57.20 Type 2 diabetes mellitus without complication, without long-term current use of insulin E11.9 Diabetes mellitus care home insulin use: without care home use Diabetes mellitus complication status: without complication Primary hypertension I10 Hypertension type: primary hypertension Nonischemic cardiomyopathy I42.8
--- NOTE | 2024-07-08 17:08 | PC.NURSE ---
Pt safely transferred from ER via wheelchair, accompanied by BRANDIN Hamilton. This nurse assumed care of pt at 1708.
[2024-07-08 21:06] LABS: Glucose Point of Care 111 mg/dL (70-110)
[2024-07-08] MEDS: pantoprazole 40 mg SDV IVP (21:32)
[2024-07-08] MEDS: D5-NS 0.45% + KCL 20 mEq 20 MEQ/1,000 ML BAG 100 MEQ IV (21:33)
[2024-07-08] MEDS: enoxaparin 40 mg/0.4 mL Syringe SUBCUT (21:33)
[2024-07-09 00:39] VITALS: BP 109/68; PULSE 73; RESP 16; O2SAT 92
[2024-07-09] MEDS: ciprofloxacin 400 MG/200 ML PREMIX 200 MG IV (03:12)
[2024-07-09] MEDS: metroNIDAZOLE IV 500 MG/100 ML PREMIX 100 MG IV ×2 (04:30→12:24)
[2024-07-09 04:54] VITALS: RESP 20
[2024-07-09] MEDS: morphine 4 mg/mL SDV 1 mL IVP (04:54)
[2024-07-09 04:56] LABS: Basophils # 0.1 10^3/uL (0.0-0.1); Basophils % 0.5 %; Eosinophils # 0.5 10^3/uL (0.0-0.8); Eosinophils % 3.6 %; Hematocrit 40.9 % (36-47); Lymphocytes # 3.6 10^3/uL (0.8-4.8); Lymphocytes % 27.6 %; Mean Corpuscular Hemoglobin 32.9 pg (27-33); Mean Corpuscular Volume 99.8 fl (85-98); Mean Platelet Volume 9.7 fL (7.4-10.4); Monocytes # 1.1 10^3/uL (0.2-0.9); Monocytes % 8.3 %; Neutrophils # 7.71 10^3/uL (1.8-7.7); Neutrophils % 59.6 %; Nucleated Red Blood Cells % 0 %; Platelet Count 302 10^3/cmm (157-399); Red Cell Distribution Width 11.9 % (12.1-15.1); White Blood Count 12.93 10^3/uL (3.29-11.43)
[2024-07-09 05:18] LABS: Anion Gap 13.7 (5-19); Blood Urea Nitrogen 6 mg/dL (6-20); Calcium 8.7 mg/dL (8.5-10.5); Carbon Dioxide 26 mmol/L (22-29); Chloride 101 mmol/L (98-107); Creatinine Clr Calc Pharmacy 95.0667; Glomerular Filtration Rate 86.2 mL/min (90-130); Glucose 140 mg/dL (65-115); Magnesium 1.7 mg/dL (1.7-2.3); Osmolality Calculated 284 mOsm/kg (285-295); Phosphorus 3.2 mg/dL (2.5-4.5); Potassium 3.7 mmol/L (3.5-5.1); Sodium 137 mmol/L (136-145)
[2024-07-09 05:29] VITALS: BP 132/66; PULSE 73; RESP 16; TEMP 37.7; O2SAT 91
[2024-07-09 07:25] VITALS: BP 105/68; PULSE 75; RESP 15; TEMP 37.4; O2SAT 91
[2024-07-09] MEDS: D5-NS 0.45% + KCL 20 mEq 20 MEQ/1,000 ML BAG 100 MEQ IV (07:51)
--- NOTE | 2024-07-09 09:44 | P.PN_ITS ---
Subjective 2 Subjective: Feeling better Pain-free Passing gas White count down Afebrile Vitals/I&O/Wt Last Vital Signs Temp 99.3 F 07/09/24 07:25 Pulse 75 07/09/24 07:25 Resp 15 07/09/24 07:25 BP 105/68 07/09/24 07:25 Pulse Ox 91 07/09/24 07:25 O2 Del Method Room Air 07/09/24 07:25 07/08/24 07/09/24 07/09/24 22:59 06:59 14:59 Intake Total 300 / 300 300 / 600 1000 / 1000 Output Total 300 / 300 350 / 650 Balance 0 / 0 -50 / -50 1000 / 1000 Weight last 48 hrs Weight 160 lb Weight 163 lb Physical Exam 2 Narrative: Chest: Unlabored breathing room air. No lymphadenopathy. Heart: Regular rate and rhythm. Abdomen: Soft, nontender, nondistended. No masses or lymphadenopathy. Data 07/09/24 04:35 07/09/24 04:35 Micro: Microbiology 07/08/24 15:36 Blood Culture - Preliminary Blood SPECIMEN COLLECTED 07/08/24 15:30 Blood Culture - Preliminary Blood SPECIMEN COLLECTED A&P Assessment and plan (1) Colonic diverticular abscess: (2) Diverticulitis: Plan 59-year-old female who presented with diverticulitis and a small abscess abutting the bladder. Responded well to bowel rest and IV antibiotics. Pain- free. Okay to transition to clear liquid diet and transition to Augmentin. If patient tolerates this well she may be discharged. Patient can advance herself at home to a regular diet as tolerated. Follow-up with a colorectal surgeon in [place] for interval colonoscopy and workup of colovesical fistula. Discussed with hospitalist. PDMP PDMP Reviewed: Not Reviewed Attestations 2 Medical Necessity Statement*: NA Coding Level of Care Code 17725 Diagnoses Colonic diverticular abscess K57.20 Diverticulitis K57.92
[2024-07-09] MEDS: TRAMadol 50 mg Tablet PO (10:48)
[2024-07-09 11:34] VITALS: BP 115/66; PULSE 68; RESP 15; TEMP 36.8; O2SAT 95
[2024-07-09 11:47] LABS: Glucose Point of Care 117 mg/dL (70-110)
--- NOTE | 2024-07-09 14:39 | PM.DCS ---
Discharge Providers Date of Admission: 07/08/24 16:39 Date of Discharge: July 09, 2024 Attending Provider at Admission: Kristine Wilson MD Attending Provider at Discharge: Freddy Gage MD Primary Care Provider: Edmond Hebert DO Diagnoses at Discharge Discharge Diagnosis (1) Colonic diverticular abscess: Status: Acute (2) Diverticulitis: Status: Acute Reason for Visit Reason for Visit: abd pain, fever, little bowel movements Hospital Course Hospital Course This is a 59-year-old female with a past medical history of type 2 diabetes mellitus, GERD, CHF, smoker, who presents [facility] for abdominal pain Patient was admitted to [facility] for acute diverticulitis with abscess, CT scan as below CT/CT abdomen pelvis w con* [id number] IMPRESSION: 1. Evidence of acute diverticulitis with peripheral enhancing abscess formation. 2. Peripherally enhancing abscess directly abuts the LEFT aspect of the bladder with diffuse thickening and enhancement of the underlying bladder wall. No visualized air. Patient at risk for fistula formation. 3. Recommend follow-up to resolution to exclude underlying neoplasm in a patient this age. 4. No hydronephrosis in either kidney. LEFT ureter courses along the lateral aspect of the abscess and lies just posterior to the abscess although not obstructed. 5. No other acute findings. -Patient received IV fluids, bowel rest, broad-spectrum IV antibiotics, general surgery was consulted -Patient was monitored for 24 hours, -Her abdominal pain resolved, passing gas from below, no nausea, no vomiting, afebrile -Advancement to clears, tolerated well --Had a detailed discussion with the patient her acute diverticulitis, abscess formation, options discussed, shared decision making -Discussed with patient that for small abscesses less than 4 cm, antibiotic therapy alone and percutaneous change have similar success rate; given that it is small at 2.7 x 2.5 cm, abutting the bladder, and that the left ureter courses along the lateral aspect of the abscess, there is significant risk of injury if drain placement was attempted -Discussed risk benefits of all options, she voiced understanding, all questions answered, shared decision-making, agreed to proceed -Discussed also the risk of fistulization to the bladder, she voiced understanding, all questions answered, she voiced understanding -Given that she is clinically improved discussed all options, she is agreeable to continue antibiotic therapy, follow-up colorectal surgery as outpatient, monitor for complications -As per general surgery patient can discharge with a follow-up with colorectal surgery in [place] with colonoscopy and workup of colovesicular fistula -Patient was discharged on Cipro and Flagyl for 12 remaining days -Patient was advised if she has any fevers, worsening abdominal pain, please immediately come to the emergency room -Smoking cessation counseling - Physical Exam Const: COMMON NORMALS: no acute distress and patient oriented x3 Resp: COMMON NORMALS: normal respiratory effort, No retractions, No use of accessory muscles and clear to auscultation bilaterally AUSCULTATION: clear to auscultation bilaterally Cardio: COMMON NORMALS: regular rate, regular rhythm, S1 normal heart sound present and S2 normal heart sound present RATE: regular rate RHYTHM: regular rhythm HEART SOUNDS: S1 normal heart sound present and S2 normal heart sound present GI: COMMON NORMALS: Normal to inspection, nondistended, normoactive bowel sounds present and non-tender Extremity: COMMON NORMALS: no calf tenderness and no pedal edema Neuro: COMMON NORMALS: patient oriented x3 Psych: COMMON NORMALS: mental status grossly normal Discharge Data Studies Completed and Pending Completed Studies During Hospitalization Category Date Time Status CT abdomen pelvis w con* [id number] Stat Cat Scan 07/08/24 14:12 Completed Pending at discharge Category Date Time Status Blood Culture Stat Lab 07/08/24 15:36 Results Radiology Impressions Abdomen/Pelvis CT 07/08/24 14:12 IMPRESSION: 1. Evidence of acute diverticulitis with peripheral enhancing abscess formation. 2. Peripherally enhancing abscess directly abuts the LEFT aspect of the bladder with diffuse thickening and enhancement of the underlying bladder wall. No visualized air. Patient at risk for fistula formation. 3. Recommend follow-up to resolution to exclude underlying neoplasm in a patient this age. 4. No hydronephrosis in either kidney. LEFT ureter courses along the lateral aspect of the abscess and lies just posterior to the abscess although not obstructed. 5. No other acute findings. Notified Maria Teresa Cao MD at 07/08/2024 3:08 PM. Laboratory Results WBC 12.93 10^3/uL (3.29-11.43) H 07/09/24 04:35 Corrected WBC Cancelled 07/08/24 13:57 RBC 4.10 10^6/uL (3.85-5.65) 07/09/24 04:35 Hgb 13.50 g/dL (11.27-16.99) 07/09/24 04:35 Hct 40.9 % (36-47) 07/09/24 04:35 MCV 99.8 fl (85-98) H D 07/09/24 04:35 MCH 32.9 pg (27-33) 07/09/24 04:35 MCHC 33.0 g/dL (30-55) 07/09/24 04:35 RDW 11.9 % (12.1-15.1) L 07/09/24 04:35 Plt Count 302 10^3/cmm (157-399) 07/09/24 04:35 MPV 9.7 fL (7.4-10.4) 07/09/24 04:35 Gran % Cancelled 07/08/24 13:57 Neut % (Auto) 59.6 % 07/09/24 04:35 Lymph % (Auto) 27.6 % 07/09/24 04:35 [place] % (Auto) 8.3 % 07/09/24 04:35 Eos % (Auto) 3.6 % 07/09/24 04:35 Baso % (Auto) 0.5 % 07/09/24 04:35 Neut # (Auto) 7.71 10^3/uL (1.8-7.7) H 07/09/24 04:35 Lymph # (Auto) 3.6 10^3/uL (0.8-4.8) 07/09/24 04:35 [place] # (Auto) 1.1 10^3/uL (0.2-0.9) H 07/09/24 04:35 Eos # (Auto) 0.5 10^3/uL (0.0-0.8) 07/09/24 04:35 Baso # (Auto) 0.1 10^3/uL (0.0-0.1) 07/09/24 04:35 Absolute Gran (auto) Cancelled 07/08/24 13:57 Nucleated RBC % (auto) 0 % 07/09/24 04:35 Nucleated RBCs # 0.0 /100WBC 07/09/24 04:35 Sodium 137 mmol/L (136-145) 07/09/24 04:35 Potassium 3.7 mmol/L (3.5-5.1) 07/09/24 04:35 Chloride 101 mmol/L (98-107) 07/09/24 04:35 Carbon Dioxide 26 mmol/L (22-29) 07/09/24 04:35 Anion Gap 13.7 (5-19) 07/09/24 04:35 BUN 6 mg/dL (6-20) 07/09/24 04:35 Creatinine 0.7 mg/dL (0.5-0.9) 07/09/24 04:35 GFR Calculation 86.2 mL/min (90-130) L 07/09/24 04:35 Glucose 140 mg/dL (65-115) H 07/09/24 04:35 POC Glucose 117 mg/dL (70-110) H 07/09/24 11:35 Calculated Osmolality 284 mOsm/kg (285-295) L 07/09/24 04:35 Calcium 8.7 mg/dL (8.5-10.5) 07/09/24 04:35 Phosphorus 3.2 mg/dL (2.5-4.5) 07/09/24 04:35 Magnesium 1.7 mg/dL (1.7-2.3) 07/09/24 04:35 Total Bilirubin 0.3 mg/dL (0.15-1.2) 07/08/24 13:57 AST 12 U/L (0-32) 07/08/24 13:57 ALT 12 U/L (0-33) 07/08/24 13:57 Alkaline Phosphatase 91 U/L (35-105) 07/08/24 13:57 Total Protein 6.7 g/dL (6.6-8.7) 07/08/24 13:57 Albumin 3.8 g/dL (3.5-5.2) 07/08/24 13:57 Globulin 2.9 g/dL (1.3-4.6) 07/08/24 13:57 Lipase 29 U/L (13-60) 07/08/24 13:57 Urine Color Yellow (Yellow) 07/08/24 13:14 Urine Appearance Clear (CLEAR) 07/08/24 13:14 Urine pH 5.5 (5-7) 07/08/24 13:14 Ur Specific [place] 1.005 (1.005-1.030) 07/08/24 13:14 Urine Protein Negative (Negative) 07/08/24 13:14 Urine Glucose (UA) Negative (Normal) 07/08/24 13:14 Urine Ketones Negative (Negative) 07/08/24 13:14 Urine Blood Negative (Negative) 07/08/24 13:14 Urine Nitrate Negative (Negative) 07/08/24 13:14 Urine Bilirubin Negative (Negative) 07/08/24 13:14 Urine Urobilinogen 0.2 mg/dL (Negative) 07/08/24 13:14 Ur Leukocyte Esterase Negative (Negative) 07/08/24 13:14 Urine RBC 0-2 /hpf (0-2) 07/08/24 13:14 Urine WBC 0-5 /hpf (0-5) 07/08/24 13:14 Ur Squamous Epith Cells 11-20 /hpf (0-5) H 07/08/24 13:14 Amorphous Sediment Not Reportable 07/08/24 13:14 Urine Bacteria None seen /hpf (NONE) 07/08/24 13:14 Hyaline Casts 0.40 /lpf 07/08/24 13:14 Vitals Last Vital Signs Temp 98.2 F 07/09/24 11:34 Pulse 68 07/09/24 11:34 Resp 15 07/09/24 11:34 BP 115/66 07/09/24 11:34 Pulse Ox 95 07/09/24 11:34 O2 Del Method Room Air 07/09/24 11:34 Discharge Plan Discharge Patient Disposition: Home Condition: Stable Prescriptions: New hydrocodone-acetaminophen 5-325 mg tablet 1 tab PO Q8H PRN (Reason: pain) 5 Days Qty: 15 0RF ciprofloxacin HCl 500 mg tablet 500 mg PO BID 12 Days Qty: 24 0RF metronidazole 500 mg tablet 500 mg PO Q8H 12 Days Qty: 36 0RF Continued acetaminophen [Tylenol Extra Strength] 500 mg tablet 1,000 mg PO QAM ibuprofen [Advil] 200 mg tablet 200 mg PO Q4H PRN (Reason: pain/fever) multivitamin Tablet 1 tab PO QAM cetirizine-pseudoephedrine [Zyrtec-D] 5-120 mg tablet extended release 12 hr 1 tab PO QAM metformin 500 mg tablet 500 mg PO BID lisinopril 10 mg tablet See Rx Instructions .ROUTE .COMPLEX Qty: 90 3RF Dose Instruction: TAKE 1 TABLET BY MOUTH EVERY DAY Rx Instructions: TAKE 1 TABLET BY MOUTH EVERY DAY aspirin 81 mg Tablet,Delayed Release (Dr/Ec) 81 mg PO DAILY omeprazole 40 mg capsule,delayed release(DR/EC) 40 mg PO DAILY Held carvedilol 3.125 mg tablet 3.125 mg PO BID Qty: 180 3RF Hold Instructions: Resume on 07/14/24. Rx Instructions: must administer with a meal/food furosemide 40 mg tablet 40 mg PO DAILY Qty: 90 3RF Hold Instructions: Resume on 07/14/24. potassium chloride 20 mEq tablet,ER particles/crystals 40 meq PO DAILY Qty: 180 3RF Hold Instructions: Resume on 07/14/24. Discharge Orders: Discharge Order (Routine); Ordered 07/09/24 Ordered By: Freddy Gage Referrals: Irving Rasmussen MD [Physician] - 4-7 days Edmond Hebert DO [Primary Care Provider] - Shawn Lopez MD [Referring] - 4-7 days (perforated diverticilitis) Discharge Diet: As Directed Discharge Activity: Resume usual activity Patient Instructions: Ciprofloxacin (By mouth), Hydrocodone/Acetaminophen (By mouth), Metronidazole (By mouth), Diverticulitis (GEN), Opioid Safety Discharge Attestations Time Spent in Discharge Care*: greater than 30 min Quality Metrics Clinical Quality Measures [ No reported AMI, CVA or VTE this stay] Coding Level of Care Code 17686 Total time (in minutes) for Discharge: 45 Diagnoses Colonic diverticular abscess K57.20 Diverticulitis K57.92
--- NOTE | 2024-07-09 15:00 | PC.NURSE ---
called the medical center to schedule f/u appt copywriter was told patient is not established with any provider there. copywriter spoke to patient and she informed that she just got off the phone with Dr Hebert's office and they are going to accept her and she already made the appointment.
== END 2024-07-09 15:06 | disposition home or self-care (01) | DRG 392 ==
LOC: ER 16:25 → MEDSURG 16:39
PROVIDERS: Admitting Provider Hospitalist; Emergency Provider Emergency Medicine; PCP Electrodiagnostic Medicine; Visit Provider Family Medicine
DX: K57.20 Diverticulitis of large intestine with perforation and abscess without bleeding (principal); I42.8 Other cardiomyopathies; E11.9 Type 2 diabetes mellitus without complications; K21.9 Gastro-esophageal reflux disease without esophagitis; F17.210 Nicotine dependence, cigarettes, uncomplicated; Z79.84 Long term (current) use of oral hypoglycemic drugs; Z79.82 Long term (current) use of aspirin; K58.9 Irritable bowel syndrome, unspecified; I10 Essential (primary) hypertension
CPT/HCPCS: 36415; 36416; 74177; 80048; 80053; 81001; 82962; 83690; 83735; 84100; 85025; 87040; 96365; 96367; 96372; 96375; 99285; J0744; J1650; J2270; J2405; J2470; J3490; J9999

== ENCOUNTER 2024-09-02 07:14 | Outpatient (CLI) | payer OTHER, SELFPAY ==
--- NOTE | 2024-09-02 07:00 | USCV_ITS ---
Trey Fabby Age: 59 Gender: F : 1965 Exam Date: 09/02/2024 07:34 Ordering Phys: Chris Brewer M.D ([email or web address]) Technologist: [place] [facility] [place]B BP: 120 / 70 HR: 77 Rhythm: Sinus Technical Quality: Adequate MEASUREMENTS (Male / Female) Normal Values 2D ECHO LV Diastolic Diameter PLAX 4.2 cm 4.2 - 5.9 / 3.9 - 5.3 cm IVS Diastolic Thickness 1.0 cm 0.6 - 1.0 / 0.6 - 0.9 cm IVS Systolic Thickness 1.5 cm LVPW Diastolic Thickness 1.5 cm 0.6 - 1.0 / 0.6 - 0.9 cm LVPW Systolic Thickness 1.4 cm LVOT Diameter 2.0 cm LV Ejection Fraction 2D Teich 51.2 % LV Ejection Fraction MOD 4C 60.2 % LV Ejection Fraction MOD 2C 71.0 % LV Ejection Fraction 2C AL 71.6 % LA Diameter 2.3 cm RA Systolic Volume 4C AL 28.0 ml RA Systolic Volume 4C MOD 28.1 ml LA Sys Volume AL 24.5 cm cubed LA Sys Volume Index AL 13.3 cm cubed/m squared Aorta at Sinotubular Diameter 2.1 cm IVC Diameter 1.7 cm M-MODE LA Ao Ratio MM 1.3 AV Cusp Separation MM 2.2 cm DOPPLER AV Peak Velocity 138.0 cm/s LVOT Peak Velocity 90.0 cm/s AV Area Cont Eq vti 2.2 cm squared AV Area Cont Eq pk 2.1 cm squared MV Peak Velocity 87.0 cm/s MV Area PHT 4.6 cm squared Mitral E to A Ratio 0.8 TV Peak Velocity 179.5 cm/s TR Peak Velocity 199.0 cm/s TR Peak Gradient 15.8 mmHg TV Peak E Velocity 77.0 cm/s PV Peak Velocity 104.0 cm/s FINDINGS Left Ventricle Left ventricle is normal in size. LV systolic function is normal with EF of 60-65%. No regional wall motion abnormalities are seen. Grade 1 diastolic dysfunction. Right Ventricle Normal in size and function Right Atrium Normal in size Left Atrium Normal in size Mitral Valve Structurally normal mitral valve. Trace mitral regurgitation. Aortic Valve Structurally normal aortic valve. No significant stenosis or regurgitation. Tricuspid Valve Mild tricuspid regurgitation. Insufficient TR jet to calculate RVSP Pulmonic Valve Not well visualized Pericardium Normal Aorta Normal in size IVC Appears to be normal CONCLUSIONS LV systolic function is normal with EF of 55-60% Grade 1 diastolic dysfunction Trace mitral regurgitation Mild tricuspid regurgitation Compared to prior echocardiogram from 2020, no significant changes are seen. Chris Brewer MD (Electronically Signed) Final Date: 14 Sep 2024 11:03 S
== END 2024-09-02 07:15 | disposition home or self-care (01) ==
PROVIDERS: PCP Internal Medicine; Visit Provider Internal Medicine
DX: R06.02 Shortness of breath (principal); R93.1 Abnormal findings on diagnostic imaging of heart and coronary circulation; I07.1 Rheumatic tricuspid insufficiency
CPT/HCPCS: 93306

== ENCOUNTER 2025-03-13 13:47 | Outpatient (CLI) | payer OTHER, SELFPAY ==
[2025-03-13 14:50] LABS: Estmated Average Glucose 114; Hemoglobin A1C 5.6 % (4.0-6.0)
== END 2025-03-13 13:48 | disposition home or self-care (01) ==
LOC: LAB 13:48
PROVIDERS: PCP Internal Medicine; Visit Provider Internal Medicine
DX: E11.9 Type 2 diabetes mellitus without complications (principal)
CPT/HCPCS: 36415; 83036